=== PATIENT | female | born 1965 | race African-American/Black ===

== ENCOUNTER 2018-10-17 04:41 | Emergency (ER) | payer OTHER ==
[2018-10-17 04:57] VITALS: BP 110/78; PULSE 98; TEMP 98.8; BMI 44.2
[2018-10-17] MEDS ORDERED: IBUPROFEN 600 MG TABLET (FP) PO ONE ×2 (05:35→05:51)
--- NOTE | 2018-10-17 05:36 | PDOC ---
Attending Attestation - HPI HPI: 10/17/18 05:45 The patient is a 53 year old female with a PMH of DM on metformin who presents to the ER with bilateral feet burning for the past month. Patient has follow up with her slitting machine operator. Patient will follow up with her PCP on 10/20. The patient denies chest pain, shortness of breath, headache and dizziness. Denies fever, chills, nausea, vomit, diarrhea and constipation. Denies dysuria, frequency, urgency and hematuria. Allergies: NKA Past surgical history: None reported. Social history: No reported alcohol, drug or cigarette use. PCP: Dr. Daily - Physicial Exam PE: 10/17/18 05:46 Agrees with resident's exam. <Vivian Chavez - Last Filed: 10/17/18 05:45> - Resident Resident Name: Ralph Guzmán - ED Attending Attestation I have performed the following: I have examined & evaluated the patient, The case was reviewed & discussed with the resident, I agree w/resident's findings & plan - Medical Decision Making 10/17/18 22:19 53-year-old female with chronic for pain Patient given analgesics at her request She will follow-up with her regular doctor <Claribel Kern - Last Filed: 10/17/18 22:20>
--- NOTE | 2018-10-17 05:54 | PDOC ---
History of Present Illness - General Chief Complaint: Pain, Acute Stated Complaint: BI-LATERAL LEG PAIN Time Seen by Provider: 10/17/18 05:27 History Source: Patient Exam Limitations: No Limitations - History of Present Illness Initial Comments: 10/17/18 05:46 Patient is a 53F with history of DM and diabetic neuropathy here today complaining of pain in her legs. She describes the pain in her legs as consistent with her diabetic neuropathy that has been going on for months. Patient states that she was asking for a second opinion to manage her diabetic neuropathy. Patient has primary care and podiatry follow up. Denies chest pain, shortness of breath, fever, nausea, and vomiting. Denies leg swelling, abdominal pain, dysuria. Past History - Past Medical History Allergies/Adverse Reactions: Allergies Allergy/AdvReac Type Severity Reaction Status Date / Time No Known Drug Allergies Allergy Verified 10/17/18 04:57 Home Medications: Ambulatory Orders Albuterol Sulfate Inhaler - [Ventolin Hfa *Inhaler*] 1 - 2 inh IH Q4H PRN Ferrous Sulfate [Feosol] 325 mg PO BID 11/26/12 Sitagliptin Phosphate [Januvia] 100 mg PO DAILY 11/26/12 metFORMIN HCL [Glucophage] 500 mg PO BID 11/26/12 Ibuprofen [Motrin -] 800 mg PO TID 06/30/14 Ibuprofen 600 mg PO BID #20 tablet 10/17/18 Anemia: No Asthma: Yes Cancer: No Cardiac Disorders: No CVA: No COPD: No CHF: No Dementia: No Diabetes: Yes (TYPE 2) GI Disorders: No Disorders: No HTN: No Hypercholesterolemia: No Liver Disease: No Seizures: No Thyroid Disease: No - Suicide/Smoking/Psychosocial Hx Smoking History: Never smoked Have you smoked in the past 12 months: No Number of Cigarettes Smoked Daily: 10 Information on smoking cessation initiated: No 'Breaking Loose' booklet given: 11/26/12 Hx Alcohol Use: No Drug/Substance Use Hx: No Substance Use Type: None Hx Substance Use Treatment: No Review of Systems - Review of Systems Comments:: 10/17/18 05:54 GENERAL/CONSTITUTIONAL: No fever or chills. No weakness. HEAD, EYES, EARS, NOSE AND THROAT: No change in vision. No sore throat. CARDIOVASCULAR: No chest pain or shortness of breath RESPIRATORY: No cough, wheezing, or hemoptysis. GASTROINTESTINAL: No nausea, vomiting, diarrhea or constipation. GENITOURINARY: No dysuria, frequency, or change in urination. MUSCULOSKELETAL: +leg pain. No neck or back pain. SKIN: No rash NEUROLOGIC: No headache, vertigo, loss of consciousness, or change in strength/ sensation. HEMATOLOGIC/LYMPHATIC: No anemia, easy bleeding, or history of blood clots. ALLERGIC/IMMUNOLOGIC: No hives or skin allergy. *Physical Exam - Vital Signs Last Vital Signs Temp Pulse Resp BP Pulse Ox 98.8 F 98 H 19 110/78 97 10/17/18 04:41 10/17/18 04:41 10/17/18 04:41 10/17/18 04:41 10/17/18 04:41 - Physical Exam Comments: 10/17/18 05:55 GENERAL: Awake, alert, and fully oriented, in no acute distress HEAD: No signs of trauma, normocephalic, atraumatic EYES: PERRLA, EOMI, sclera anicteric, conjunctiva clear ENT: Auricles normal inspection, hearing grossly normal, nares patent, oropharynx clear without exudates. Moist mucosa NECK: Normal ROM, supple, no lymphadenopathy, JVD, or masses LUNGS: No distress, speaks full sentences, clear to auscultation bilaterally HEART: Regular rate and rhythm, normal S1 and S2, no murmurs, rubs or gallops, peripheral pulses normal and equal bilaterally. ABDOMEN: Soft, nontender, normoactive bowel sounds. No guarding, no rebound. No masses EXTREMITIES: Normal inspection, Normal range of motion, no edema. No clubbing or cyanosis. Neurovascularly intact with 2+ pulses bilaterally. NEUROLOGICAL: Cranial nerves II through XII grossly intact. Normal speech, normal gait, no focal sensorimotor deficits SKIN: Warm, Dry, normal turgor, no rashes or lesions noted. Moderate Sedation - Procedure Monitoring Vital Signs: Procedure Monitoring Vital Signs Temperature 98.8 F 10/17/18 04:41 Pulse Rate 98 H 10/17/18 04:41 Respiratory Rate 19 10/17/18 04:41 Blood Pressure 110/78 10/17/18 04:41 O2 Sat by Pulse Oximetry (%) 97 10/17/18 04:41 Medical Decision Making - Medical Decision Making 03/13/19 05:57 Patient is 53F with diabetic neuropathy here today with leg pain consistent with diabetic neuropathy. Vitals normal and stable. Patient requesting second opinion, instructed to follow up with pcp and her sandwich machine operator, continue current treatments. Will discharge home. Patient requested prescription for motrin, given. *DC/Admit/Observation/Transfer Diagnosis at time of Disposition: Diabetic neuropathy - Discharge Dispostion Disposition: HOME Condition at time of disposition: Good Decision to Admit order: No - Prescriptions Prescriptions: Ibuprofen 600 mg PO BID #20 tablet - Referrals Referrals: Lali Daily [Primary Care Provider] - - Patient Instructions Printed Discharge Instructions: DI for Diabetic Neuropathy Additional Instructions: Please follow up with your primary care doctor and sandwich machine operator regarding your diabetic neuropathy. Please return if you have any new, worsening or concerning symptoms, especially increasing pain, shortness of breath, and fever. - Post Discharge Activity
== END 2018-10-17 07:53 | disposition home or self-care (01) ==
LOC: JER 04:41
DX: E11.40 Type 2 diabetes mellitus with diabetic neuropathy, unspecified (principal); Z79.84 Long term (current) use of oral hypoglycemic drugs; Z87.891 Personal history of nicotine dependence
CPT/HCPCS: 99281-25

== ENCOUNTER 2018-10-21 04:18 | Emergency (ER) | payer OTHER ==
[2018-10-21] MEDS ORDERED: ACETAMINOPHEN 1000 MG/100 ML VIAL (NON FORMULARY) IVPB ONE (04:49)
--- NOTE | 2018-10-21 04:57 | PDOC ---
History of Present Illness - General Stated Complaint: FOOT PAIN Time Seen by Provider: 10/21/18 04:36 - History of Present Illness Initial Comments: 10/21/18 04:50 Patient is a 53 y/o female with a history of DM and HTN who presents for lower extremity pain. She has had this pain for years and knows it is a neuropathic pain related to her diabetes. She reports she has a primary care at [facility] but they don't help her. She takes Gabapentin for the neuopathic pain but reports it doesn't help. She states she is compliant with her medications. She reports the pain is constant and wakes her up from sleep. She denies nausea, vomiting, fever, chills, chest pain, or shortness of breath. 10/21/18 04:57 1 gm IV Tylenol for pain Past History - Past Medical History Allergies/Adverse Reactions: Allergies Allergy/AdvReac Type Severity Reaction Status Date / Time No Known Drug Allergies Allergy Verified 10/21/18 05:17 Home Medications: Ambulatory Orders Albuterol Sulfate Inhaler - [Ventolin Hfa *Inhaler*] 1 - 2 inh IH Q4H PRN Ferrous Sulfate [Feosol] 325 mg PO BID 11/26/12 Sitagliptin Phosphate [Januvia] 100 mg PO DAILY 11/26/12 metFORMIN HCL [Glucophage] 500 mg PO BID 11/26/12 Ibuprofen [Motrin -] 800 mg PO TID 06/30/14 Ibuprofen 600 mg PO BID #20 tablet 10/17/18 Anemia: No Asthma: Yes Cancer: No Cardiac Disorders: No CVA: No COPD: No CHF: No Dementia: No Diabetes: Yes (TYPE 2) GI Disorders: No Disorders: No HTN: No Hypercholesterolemia: No Liver Disease: No Seizures: No Thyroid Disease: No - Suicide/Smoking/Psychosocial Hx Smoking History: Never smoked Have you smoked in the past 12 months: No Number of Cigarettes Smoked Daily: 10 'Breaking Loose' booklet given: 11/26/12 Hx Alcohol Use: No Drug/Substance Use Hx: No Substance Use Type: None Hx Substance Use Treatment: No Review of Systems - Review of Systems Constitutional: No: Chills, Fever, Night Sweats HEENTM: No: Blurred Vision Respiratory: No: Cough, Shortness of Breath Cardiac (ROS): No: Chest Pain ABD/GI: No: Abdominal Distended, Diarrhea, Nausea Neurological: Yes: Tingling *Physical Exam - Physical Exam Comments: 10/21/18 04:55 GENERAL: A&O x3, figiting HEART: RRR, no murmurs, rubs, or gallops LUNGS: CTAL B/L ABD: soft, obese, non tender EXTREMITIES: diffuse nonpitting edema of lower extremity MSK: sensation intact, 5/5 strength lower extremity skin: no rashes or lesions noted *DC/Admit/Observation/Transfer Diagnosis at time of Disposition: Diabetic neuropathy Qualifiers: Diabetes mellitus type: type 2 Diabetes mellitus complication detail: diabetic autonomic neuropathy Qualified Code(s): E11.43 - Type 2 diabetes mellitus with diabetic autonomic (poly)neuropathy - Discharge Dispostion Disposition: HOME Condition at time of disposition: Good - Referrals - Patient Instructions Printed Discharge Instructions: DI for Diabetic Neuropathy Additional Instructions: You came to the Emergency Department for pain in your legs. This is due to the neuropathy that you have from Diabetes. It is very important to continue to control your sugars so the pain does not worsen. We gave you some medication to help with the pain. You should continue to follow up with your primary care physician for continued treatment for your pain. Please return to the hospital if you have nausea, vomiting, headache, shortness of breath or chest pain. - Post Discharge Activity
[2018-10-21] MEDS ORDERED: ACETAMINOPHEN INJECTION 100 ML IVPB ONE (05:01)
[2018-10-21] MEDS ORDERED: KETOROLAC TROMETHAMINE 30 MG/1 ML VIAL IM ONE (05:14)
[2018-10-21 05:18] VITALS: BMI 25.7
[2018-10-21] MEDS ORDERED: KETOROLAC TROMETHAMINE 30 MG/1 ML VIAL ONE (05:20)
--- NOTE | 2018-10-21 06:15 | PDOC ---
Attending Attestation - Resident Resident Name: Lillie Cruz - ED Attending Attestation I have performed the following: I have examined & evaluated the patient, The case was reviewed & discussed with the resident, I agree w/resident's findings & plan - HPI HPI: 10/21/18 06:15 Pt comes with leg pain and neuropathy that woke her from sleep. Pt states that her legs are more swollen than usual. - Physicial Exam PE: 10/21/18 06:16 Agree with resident exam - Medical Decision Making 10/21/18 06:16 Pt is feeling vastly improved in the ER and she has been reassured and she is willing to go home.
[2018-10-21 06:39] VITALS: BP 130/89; PULSE 104; TEMP 98.1
== END 2018-10-21 09:15 | disposition home or self-care (01) ==
LOC: JER 04:18
PROC: 3E0233Z Introduction of Anti-inflammatory into Muscle, Percutaneous Approach (ICD-10-PCS; principal; 2018-10-21)
DX: E11.43 Type 2 diabetes mellitus with diabetic autonomic (poly)neuropathy (principal); Z79.84 Long term (current) use of oral hypoglycemic drugs; Z87.09 Personal history of other diseases of the respiratory system
CPT/HCPCS: 96372; 99281-25

== ENCOUNTER → 2018-11-12 | Emergency (ER) | payer OTHER ==
[2018-11-12 12:57] VITALS: BP 136/90; PULSE 95; TEMP 97.6; BMI 41.1
--- NOTE | 2018-11-12 15:11 | PDOC ---
*Physical Exam - Vital Signs Last Vital Signs Temp Pulse Resp BP Pulse Ox 97.6 F 95 H 16 136/90 100 11/12/18 12:30 11/12/18 12:30 11/12/18 12:30 11/12/18 12:30 11/12/18 12:30 *DC/Admit/Observation/Transfer Diagnosis at time of Disposition: Patient left after triage - Discharge Dispostion Disposition: LEFT BEFORE AXEL ERAZO RM - Referrals Referrals: Lillie Lovett [Primary Care Provider] - - Patient Instructions - Post Discharge Activity
== END | disposition left against medical advice (07) ==
LOC: JER 12:29
DX: Z53.21 Procedure and treatment not carried out due to patient leaving prior to being seen by health care provider (principal)
CPT/HCPCS: 99281-25

== ENCOUNTER 2020-03-26 02:47 | Observation (INO) | payer OTHER ==
--- NOTE | 2020-03-26 02:58 | PDOC ---
Attending Attestation - Resident Resident Name: Julio Silverman - ED Attending Attestation I have performed the following: I have examined & evaluated the patient, The case was reviewed & discussed with the resident, I agree w/resident's findings & plan - HPI HPI: 03/26/20 03:59 see resident hpi - Physicial Exam PE: 03/26/20 03:59 see resident exam - Medical Decision Making 03/26/20 03:54-year-old female status post fall with pain to the left knee and leg with admitted cocaine and alcohol use this evening In addition to stated complaint patient states she is also had bilateral lower extremity swelling, left greater than right We will proceed with trauma/medical evaluation 03/26/20 06:[address] shows no acute abnormality Labs significant for hyperkalemia, possibly due to hemolysis Elevated blood sugar as well as elevated BNP Insulin, Lasix and calcium given We will admit to medical service for further evaluation Discharge - Discharge Information Problems reviewed: Yes Clinical Impression/Diagnosis: CHF (congestive heart failure) Qualifiers: Heart failure type: unspecified Heart failure chronicity: unspecified Qualified Code(s): I50.9 - Heart failure, unspecified Uncontrolled diabetes mellitus Qualifiers: Diabetes mellitus type: type 2 Glycemic state: with hyperglycemia Qualified Code(s): E11.65 - Type 2 diabetes mellitus with hyperglycemia Fall Qualifiers: Encounter type: initial encounter Qualified Code(s): W19.XXXA - Unspecified fall, initial encounter Condition: Fair - Follow up/Referral - Patient Discharge Instructions - Post Discharge Activity
[2020-03-26 03:00] VITALS: BMI 41.5
[2020-03-26 03:50] LABS: HEMOGLOBIN 14.9 GM/dL (10.7-15.3); MCH 31.4 pg (25.7-33.7); MEAN CELL VOLUME 95.2 fl (80-96); MEAN PLT VOLUME 9.6 fl (7.5-11.1); PLATELET COUNT 218 K/MM3 (134-434); RBC 4.73 M/mm3 (3.60-5.2); RDW 14.8 % (11.6-15.6); WHITE BLOOD COUNT 5.5 K/mm3 (4.0-10.0)
[2020-03-26 03:56] LABS: EPI CELLS 4 /uL (0-25.1); HYALINE CASTS 0 /uL (0-3.1); URINE APPEARANCE CLEAR; URINE BACTERIA 6033 /uL (0-1359); URINE BILIRUBIN NEGATIVE (NEGATIVE); URINE COLOR YELLOW; URINE GLUCOSE (UA) 3+ (NEGATIVE); URINE KETONE NEGATIVE (NEGATIVE); URINE LEUK ESTERASE NEGATIVE (NEGATIVE); URINE NITRITE NEGATIVE (NEGATIVE); URINE PROTEIN 2+ (NEGATIVE); URINE RBC 6 /uL (0-23.9); URINE UROBILINOGEN 0.2 mg/dL (0.2-1.0); URINE WBC 22 /uL (0-25.8)
[2020-03-26 03:59] LABS: OPIATES, URI NEGATIVE ng/ml (CUTOFF=300); URINE BARBITURATES NEGATIVE ng/ml (CUTOFF=200)
[2020-03-26 04:41] LABS: METHADONE, UR NEGATIVE ng/ml (CUTOFF=300); URINE AMPHETAMINES NEGATIVE ng/ml (CUTOFF=500); URINE BENZODIAZEPINES NEGATIVE ng/ml (CUTOFF=200)
[2020-03-26 04:45] LABS: COCAINE, UR POSITIVE ng/ml (CUTOFF=300)
[2020-03-26 04:46] LABS: PHENCYCLIDINE,URINE POSITIVE ng/ml (CUTOFF=25)
[2020-03-26 04:54] LABS: BLOOD UREA NITROGEN 21.4 mg/dL (7-18); CALCIUM 8.5 mg/dL (8.5-10.1); CREATININE 1.1 mg/dL (0.55-1.3)
[2020-03-26 04:56] LABS: BILIRUBIN,TOTAL 0.3 mg/dL (0.2-1); N-TERMINAL BNP 1200.1 pg/ml (5-125); TOT PROT 7.3 g/dl (6.4-8.2)
[2020-03-26 04:58] LABS: POTASSIUM 7.8 mmol/L (3.5-5.1)
[2020-03-26] MEDS ORDERED: INSULIN REGULAR HUMAN 100 UNITS/ML *VIAL IVPUSH ONE (05:02)
[2020-03-26 05:04] LABS: INR 0.83 (0.83-1.09); PROTHROMBIN TIME (PATIENT) 9.8 SEC (9.7-13.0)
[2020-03-26 05:06] LABS: ACTIVATED PTT 28.1 SECONDS (25.2-36.5)
--- NOTE | 2020-03-26 05:44 | PDOC ---
History of Present Illness - General Chief Complaint: Injury Stated Complaint: FALL Time Seen by Provider: 03/26/20 02:56 - History of Present Illness Initial Comments: 03/26/20 05:37 54 F with HTN, DM, COPD BIBA after a fall. Patient went to the toilet, had an urinary urgency, peed and fell on the floor. Denies head hitting, LOC. Denies N/V/D. Patient admitted to drinking beer, and did cocaine. Patient was screaming and yelling at the staff. Patient janae endorse left leg pain. Patient tried to call her PCP for the past 3 weeks, but couldn't. Left leg swelling has been going on for the past 3 weeks. HPI PMHX: as in HPI PSHX: none Meds: insulin. Allergies: no Tob: yes Etoh: yes to beer Rec drugs: yes to cocaine PCP: none ROS GENERAL/CONSTITUTIONAL: No fever or chills. No weakness. HEAD, EYES, EARS, NOSE AND THROAT: No change in vision. No ear pain or discharge. No sore throat. CARDIOVASCULAR: No chest pain or shortness of breath RESPIRATORY: No cough, wheezing, or hemoptysis. GASTROINTESTINAL: No nausea, vomiting, diarrhea or constipation. GENITOURINARY: No dysuria, frequency, or change in urination. MUSCULOSKELETAL: +left leg pain. No neck or back pain. SKIN: No rash NEUROLOGIC: No headache, vertigo, loss of consciousness, or change in strength/sensation. ENDOCRINE: No increased thirst. No abnormal weight change HEMATOLOGIC/LYMPHATIC: No anemia, easy bleeding, or history of blood clots. ALLERGIC/IMMUNOLOGIC: No hives or skin allergy. PE GENERAL:no acute distress, somnolent, drunk. screaming at staff. demanding every 5 mins. Morbidly obese. HEAD: No signs of trauma, normocephalic, atraumatic EYES: PERRLA, EOMI, sclera anicteric, conjunctiva clear ENT: Auricles normal inspection, hearing grossly normal, nares patent, oropharynx clear without exudates. Moist mucosa NECK: Normal ROM, supple, no lymphadenopathy, JVD, or masses LUNGS: No distress, speaks full sentences, clear to auscultation bilaterally HEART: Regular rate and rhythm, normal S1 and S2, no murmurs, rubs or gallops, peripheral pulses normal and equal bilaterally. ABDOMEN: Soft, protrubing, nondistended, normoactive bowel sounds. No guarding, no rebound. No masses EXTREMITIES :Left leg below the knee looks cellulitis, red/warm/tender. Right leg normal NEUROLOGICAL: Cranial nerves II through XII grossly intact. Normal speech, normal gait, no focal sensorimotor deficits SKIN: Warm, Dry, normal turgor, no rashes or lesions noted Past History - Medical History Allergies/Adverse Reactions: Allergies Allergy/AdvReac Type Severity Reaction Status Date / Time No Known Drug Allergies Allergy Verified 03/26/20 03:00 Home Medications: Ambulatory Orders Albuterol Sulfate Inhaler - [Ventolin Hfa *Inhaler*] 1 - 2 inh IH Q4H PRN 11/26/12 Ferrous Sulfate [Feosol] 325 mg PO BID 11/26/12 Sitagliptin Phosphate [Januvia] 100 mg PO DAILY 11/26/12 metFORMIN HCL [Glucophage] 500 mg PO BID 11/26/12 Ibuprofen [Motrin -] 800 mg PO TID 06/30/14 Ibuprofen 600 mg PO BID #20 tablet 10/17/18 Anemia: No Asthma: Yes Cancer: No Cardiac Disorders: No CVA: No COPD: No CHF: No Dementia: No Diabetes: Yes (TYPE 2) GI Disorders: No Disorders: No HTN: No Hypercholesterolemia: No Liver Disease: No Seizures: No Thyroid Disease: No - Reproductive History Is Patient Now?: No - Immunization History Immunization Up to Date: (Unknown) - Psycho-Social/Smoking History Smoking History: Never smoked Have you smoked in the past 12 months: No Number of Cigarettes Smoked Daily: 10 Information on smoking cessation initiated: No 'Breaking Loose' booklet given: 11/26/12 - Substance Abuse Hx (Audit-C & DAST Scrn) How often the patient has a drink containing alcohol: Never Score: In Men: 4 or > Positive; In Women: 3 or > Positive: 0 Screen Result (Pos requires Nsg. Audit-10AR): Negative In the last yr the pt used illegal drug/Rx for NonMed reason: No Score: Yes response is considered Positive: 0 Screen Result (Positive result requires Nsg. DAST-10): Negative *Physical Exam - Vital Signs Last Vital Signs Temp Pulse Resp BP Pulse Ox 97.7 F 106 H 20 165/78 96 03/26/20 02:50 03/26/20 02:50 03/26/20 02:50 03/26/20 02:50 03/26/20 02:50 ED Treatment Course - LABORATORY CBC & Chemistry Diagram: 03/26/20 03:20 03/26/20 05:28 - ADDITIONAL ORDERS Additional order review: Laboratory Results 03/26/20 03/26/20 03/26/20 04:20 03:20 03:20 PT with INR 9.80 INR 0.83 PTT (Actin FS) 28.1 Sodium Potassium Chloride Carbon Dioxide Anion Gap BUN Creatinine Est GFR (CKD-EPI)AfAm Est GFR (CKD-EPI)NonAf Random Glucose Calcium Total Bilirubin AST ALT Alkaline Phosphatase Creatine Kinase Creatine Kinase Index CK-MB (CK-2) Troponin I B-Natriuretic Peptide Total Protein Albumin Urine Color Yellow Urine Appearance Clear Urine pH 5.0 Ur Specific [place] 1.015 Urine Protein 2+ H Urine Glucose (UA) 3+ H Urine Ketones Negative Urine Blood Trace Urine Nitrite Negative Urine Bilirubin Negative Urine Urobilinogen 0.2 Ur Leukocyte Esterase Negative Urine WBC (Auto) 22 Urine RBC (Auto) 6 Urine Casts (Auto) 0 U Epithel Cells (Auto) 4 Urine Bacteria (Auto) 6033 Opiates Screen Negative Methadone Screen Negative Barbiturate Screen Negative Phencyclidine Screen Positive A* Ur Amphetamines Screen Negative MDMA (Ecstasy) Screen Negative Benzodiazepines Screen Negative Cocaine Screen Positive A* U Marijuana (THC) Screen Negative 03/26/20 03/26/20 03:20 03:19 PT with INR Cancelled INR Cancelled PTT (Actin FS) Cancelled Sodium 131 L Potassium 7.8 H* Chloride 102 Carbon Dioxide 22 Anion Gap 7 L BUN 21.4 H Creatinine 1.1 Est GFR (CKD-EPI)AfAm 65.92 Est GFR (CKD-EPI)NonAf 56.87 Random Glucose 401 H* Calcium 8.5 Total Bilirubin 0.3 AST 97 H ALT 99 H Alkaline Phosphatase 245 H Creatine Kinase 166 Creatine Kinase Index 1.0 CK-MB (CK-2) 1.7 Troponin I 0.04 B-Natriuretic Peptide 1200.1 H Total Protein 7.3 Albumin 3.0 L Urine Color Urine Appearance Urine pH Ur Specific [place] Urine Protein Urine Glucose (UA) Urine Ketones Urine Blood Urine Nitrite Urine Bilirubin Urine Urobilinogen Ur Leukocyte Esterase Urine WBC (Auto) Urine RBC (Auto) Urine Casts (Auto) U Epithel Cells (Auto) Urine Bacteria (Auto) Opiates Screen Methadone Screen Barbiturate Screen Phencyclidine Screen Ur Amphetamines Screen MDMA (Ecstasy) Screen Benzodiazepines Screen Cocaine Screen U Marijuana (THC) Screen 03/26/20 03:20 RBC 4.73 MCV 95.2 MCHC 33.0 RDW 14.8 D MPV 9.6 - RADIOLOGY Radiology Studies Ordered: Category Date Time Status HEAD CT WITHOUT CONTRAST [CT] Stat CT Scan 03/26/20 03:13 Ordered PORTCXR [CHEST X-RAY PORTABLE*] [RAD] Stat Radiology 03/26/20 03:14 Taken - Medications Given in the ED: ED Medications Discontinued Medications Generic Name Dose Route Start Last Admin Trade Name Toney PRN Reason Stop Dose Admin Insulin Human Regular 6 units 03/26/20 05:02 03/26/20 05:32 Novolin R Vial *For Ivpush Or Iv Drip Only* IVPUSH 03/26/20 05:03 6 units ONCE ONE Administration Medical Decision Making - Medical Decision Making 03/26/20 05:[address], Chest Xray CBC, CMP, trop, UA/UC, UTox EKG : vent rate 105, sinus tachycardia , low voltage QRS, no ST elevation. CBC is normal, CMP (hemolyzed), EKG is normal, no ST elevated. . troponin is negative. Blood sugar 400, BNP 1200, elevated liver enzymes. Utox : +cocaine, +PCP UA: elevated WBC---> ceftriaxone. Plan: admit for antibiotics+ duplex, CHF, uncontrolled DM. 03/26/20 05:51 03/26/20 06:19 Repeated BMP: K is 6. Give insulin + calcium gluconate. No change in EKG> Will repeat BMP. 03/26/20 06:33 03/26/20 06:[address] scan result: Discharge - Discharge Information Problems reviewed: Yes Clinical Impression/Diagnosis: CHF (congestive heart failure) Qualifiers: Heart failure type: unspecified Heart failure chronicity: unspecified Qualified Code(s): I50.9 - Heart failure, unspecified Uncontrolled diabetes mellitus Qualifiers: Diabetes mellitus type: type 2 Glycemic state: with hyperglycemia Qualified Code(s): E11.65 - Type 2 diabetes mellitus with hyperglycemia Fall Qualifiers: Encounter type: initial encounter Qualified Code(s): W19.XXXA - Unspecified fall, initial encounter Condition: Fair - Admission Yes - Follow up/Referral - Patient Discharge Instructions - Post Discharge Activity
[2020-03-26 06:01] LABS: ALBUMIN 2.9 g/dl (3.4-5.0); BILIRUBIN,TOTAL 0.2 mg/dL (0.2-1); BLOOD UREA NITROGEN 18.6 mg/dL (7-18); CALCIUM 8.6 mg/dL (8.5-10.1); CREATININE 0.9 mg/dL (0.55-1.3); TOT PROT 6.8 g/dl (6.4-8.2)
[2020-03-26] MEDS ORDERED: CALCIUM GLUCONATE 10% - 1,000 MG/10 ML VIAL IVPB ONE (06:18)
[2020-03-26] MEDS ORDERED: CEFTRIAXONE 1,000 MG in DEXTROSE 5%-WATER - 50 ML IVPB ONE (06:53)
[2020-03-26] MEDS ORDERED: CALCIUM CHLORIDE 1 GM/10 ML *DISP.SYRIN ONE (06:53)
[2020-03-26] MEDS ORDERED: FUROSEMIDE 40 MG/4 ML INJECTABLE VIAL IVPUSH ONE (07:00)
--- NOTE | 2020-03-26 07:16 | PDOC ---
*Physical Exam - Vital Signs Last Vital Signs Temp Pulse Resp BP Pulse Ox 97.7 F 106 H 20 165/78 97 03/26/20 02:50 03/26/20 02:50 03/26/20 02:50 03/26/20 02:50 03/26/20 06:24 ED Treatment Course - LABORATORY CBC & Chemistry Diagram: 03/26/20 03:20 03/26/20 05:28 - ADDITIONAL ORDERS Additional order review: Laboratory Results 03/26/20 03/26/20 03/26/20 05:28 04:20 03:20 PT with INR 9.80 INR 0.83 PTT (Actin FS) 28.1 Sodium 135 L Potassium 6.0 H Chloride 102 Carbon Dioxide 25 Anion Gap 8 BUN 18.6 H Creatinine 0.9 Est GFR (CKD-EPI)AfAm 84.01 Est GFR (CKD-EPI)NonAf 72.49 Random Glucose 385 H Calcium 8.6 Total Bilirubin 0.2 AST 65 H ALT 88 H Alkaline Phosphatase 233 H Creatine Kinase Creatine Kinase Index CK-MB (CK-2) Troponin I B-Natriuretic Peptide Total Protein 6.8 Albumin 2.9 L Urine Color Urine Appearance Urine pH Ur Specific [place] Urine Protein Urine Glucose (UA) Urine Ketones Urine Blood Urine Nitrite Urine Bilirubin Urine Urobilinogen Ur Leukocyte Esterase Urine WBC (Auto) Urine RBC (Auto) Urine Casts (Auto) U Epithel Cells (Auto) Urine Bacteria (Auto) Opiates Screen Negative Methadone Screen Negative Barbiturate Screen Negative Phencyclidine Screen Positive A* Ur Amphetamines Screen Negative MDMA (Ecstasy) Screen Negative Benzodiazepines Screen Negative Cocaine Screen Positive A* U Marijuana (THC) Screen Negative 03/26/20 03/26/20 03/26/20 03:20 03:20 03:19 PT with INR Cancelled INR Cancelled PTT (Actin FS) Cancelled Sodium 131 L Potassium 7.8 H* Chloride 102 Carbon Dioxide 22 Anion Gap 7 L BUN 21.4 H Creatinine 1.1 Est GFR (CKD-EPI)AfAm 65.92 Est GFR (CKD-EPI)NonAf 56.87 Random Glucose 401 H* Calcium 8.5 Total Bilirubin 0.3 AST 97 H ALT 99 H Alkaline Phosphatase 245 H Creatine Kinase 166 Creatine Kinase Index 1.0 CK-MB (CK-2) 1.7 Troponin I 0.04 B-Natriuretic Peptide 1200.1 H Total Protein 7.3 Albumin 3.0 L Urine Color Yellow Urine Appearance Clear Urine pH 5.0 Ur Specific [place] 1.015 Urine Protein 2+ H Urine Glucose (UA) 3+ H Urine Ketones Negative Urine Blood Trace Urine Nitrite Negative Urine Bilirubin Negative Urine Urobilinogen 0.2 Ur Leukocyte Esterase Negative Urine WBC (Auto) 22 Urine RBC (Auto) 6 Urine Casts (Auto) 0 U Epithel Cells (Auto) 4 Urine Bacteria (Auto) 6033 Opiates Screen Methadone Screen Barbiturate Screen Phencyclidine Screen Ur Amphetamines Screen MDMA (Ecstasy) Screen Benzodiazepines Screen Cocaine Screen U Marijuana (THC) Screen 03/26/20 03:20 RBC 4.73 MCV 95.2 MCHC 33.0 RDW 14.8 D MPV 9.6 - Medications Given in the ED: ED Medications Discontinued Medications Generic Name Dose Route Start Last Admin Trade Name Freq PRN Reason Stop Dose Admin Calcium Gluconate 1,000 mg 03/26/20 06:18 03/26/20 07:00 Calcium Gluconate 10% - IVPB 03/26/20 06:19 1,000 mg ONCE ONE Administration Insulin Human Regular 6 units 03/26/20 05:02 03/26/20 05:32 Novolin R Vial *For Ivpush Or Iv Drip Only* IVPUSH 03/26/20 05:03 6 units ONCE ONE Administration Medical Decision Making - Medical Decision Making 03/26/20 07:16 received sign out from night team 54F slip and fall s/p PCP and cocaine use Discharge - Discharge Information Clinical Impression/Diagnosis: CHF (congestive heart failure) Qualifiers: Heart failure type: unspecified Heart failure chronicity: unspecified Qualified Code(s): I50.9 - Heart failure, unspecified Uncontrolled diabetes mellitus Qualifiers: Diabetes mellitus type: type 2 Glycemic state: with hyperglycemia Qualified Code(s): E11.65 - Type 2 diabetes mellitus with hyperglycemia Fall Qualifiers: Encounter type: initial encounter Qualified Code(s): W19.XXXA - Unspecified fall, initial encounter Condition: Fair - Follow up/Referral - Patient Discharge Instructions - Post Discharge Activity
[2020-03-26] MEDS ORDERED: FUROSEMIDE 40 MG/4 ML INJECTABLE VIAL ONE ×2 (07:36→11:55)
[2020-03-26] MEDS ORDERED: CEFTRIAXONE 1 GM/50 ML BAG ONE (07:36)
[2020-03-26] MEDS ORDERED: ACETAMINOPHEN 1000 MG/100 ML VIAL (NON FORMULARY) IVPB ONE (08:13)
--- NOTE | 2020-03-26 08:34 | PDOC ---
*Physical Exam - Vital Signs Last Vital Signs Temp Pulse Resp BP Pulse Ox 97.7 F 106 H 20 165/78 97 03/26/20 02:50 03/26/20 02:50 03/26/20 02:50 03/26/20 02:50 03/26/20 06:24 ED Treatment Course - LABORATORY CBC & Chemistry Diagram: 03/26/20 03:20 03/26/20 08:10 - ADDITIONAL ORDERS Additional order review: Laboratory Results 03/26/20 03/26/20 03/26/20 05:28 04:20 03:20 PT with INR 9.80 INR 0.83 PTT (Actin FS) 28.1 Sodium 135 L Potassium 6.0 H Chloride 102 Carbon Dioxide 25 Anion Gap 8 BUN 18.6 H Creatinine 0.9 Est GFR (CKD-EPI)AfAm 84.01 Est GFR (CKD-EPI)NonAf 72.49 Random Glucose 385 H Calcium 8.6 Total Bilirubin 0.2 AST 65 H ALT 88 H Alkaline Phosphatase 233 H Creatine Kinase Creatine Kinase Index CK-MB (CK-2) Troponin I B-Natriuretic Peptide Total Protein 6.8 Albumin 2.9 L Urine Color Urine Appearance Urine pH Ur Specific [place] Urine Protein Urine Glucose (UA) Urine Ketones Urine Blood Urine Nitrite Urine Bilirubin Urine Urobilinogen Ur Leukocyte Esterase Urine WBC (Auto) Urine RBC (Auto) Urine Casts (Auto) U Epithel Cells (Auto) Urine Bacteria (Auto) Opiates Screen Negative Methadone Screen Negative Barbiturate Screen Negative Phencyclidine Screen Positive A* Ur Amphetamines Screen Negative MDMA (Ecstasy) Screen Negative Benzodiazepines Screen Negative Cocaine Screen Positive A* U Marijuana (THC) Screen Negative 03/26/20 03/26/20 03/26/20 03:20 03:20 03:19 PT with INR Cancelled INR Cancelled PTT (Actin FS) Cancelled Sodium 131 L Potassium 7.8 H* Chloride 102 Carbon Dioxide 22 Anion Gap 7 L BUN 21.4 H Creatinine 1.1 Est GFR (CKD-EPI)AfAm 65.92 Est GFR (CKD-EPI)NonAf 56.87 Random Glucose 401 H* Calcium 8.5 Total Bilirubin 0.3 AST 97 H ALT 99 H Alkaline Phosphatase 245 H Creatine Kinase 166 Creatine Kinase Index 1.0 CK-MB (CK-2) 1.7 Troponin I 0.04 B-Natriuretic Peptide 1200.1 H Total Protein 7.3 Albumin 3.0 L Urine Color Yellow Urine Appearance Clear Urine pH 5.0 Ur Specific [place] 1.015 Urine Protein 2+ H Urine Glucose (UA) 3+ H Urine Ketones Negative Urine Blood Trace Urine Nitrite Negative Urine Bilirubin Negative Urine Urobilinogen 0.2 Ur Leukocyte Esterase Negative Urine WBC (Auto) 22 Urine RBC (Auto) 6 Urine Casts (Auto) 0 U Epithel Cells (Auto) 4 Urine Bacteria (Auto) 6033 Opiates Screen Methadone Screen Barbiturate Screen Phencyclidine Screen Ur Amphetamines Screen MDMA (Ecstasy) Screen Benzodiazepines Screen Cocaine Screen U Marijuana (THC) Screen 03/26/20 03:20 RBC 4.73 MCV 95.2 MCHC 33.0 RDW 14.8 D MPV 9.6 - Medications Given in the ED: ED Medications Discontinued Medications Generic Name Dose Route Start Last Admin Trade Name Freq PRN Reason Stop Dose Admin Calcium Gluconate 1,000 mg 03/26/20 06:18 03/26/20 07:00 Calcium Gluconate 10% - IVPB 03/26/20 06:19 1,000 mg ONCE ONE Administration Furosemide 20 mg 03/26/20 07:00 03/26/20 07:40 Lasix Injection - IVPUSH 03/26/20 07:01 20 mg ONCE ONE Administration Ceftriaxone Sodium 1,000 mg/ 50 mls @ 100 mls/hr 03/26/20 06:53 03/26/20 07:45 Dextrose IVPB 03/26/20 07:22 100 mls/hr ONCE ONE Administration Insulin Human Regular 6 units 03/26/20 05:02 03/26/20 05:32 Novolin R Vial *For Ivpush Or Iv Drip Only* IVPUSH 03/26/20 05:03 6 units ONCE ONE Administration Medical Decision Making - Medical Decision Making 03/26/20 08:32 received as sign out from night team 54F slip and fall s/p cocaine and PCP to be admitted for hyperkalemia and hyperglycemia f/u DVT study 03/26/20 08:42 patient was c/o leg pain which notably was relieved when I examined her legs for edema will f/u DVT study and provide tylenol 03/26/20 10:16 no DVT on US endorsed to ANDIE Sánchez for tele-obs Discharge - Discharge Information Problems reviewed: Yes Clinical Impression/Diagnosis: CHF (congestive heart failure) Qualifiers: Heart failure type: unspecified Heart failure chronicity: unspecified Qualified Code(s): I50.9 - Heart failure, unspecified Uncontrolled diabetes mellitus Qualifiers: Diabetes mellitus type: type 2 Glycemic state: with hyperglycemia Qualified Code(s): E11.65 - Type 2 diabetes mellitus with hyperglycemia Fall Qualifiers: Encounter type: initial encounter Qualified Code(s): W19.XXXA - Unspecified fall, initial encounter Condition: Fair - Admission Yes - Follow up/Referral - Patient Discharge Instructions - Post Discharge Activity
[2020-03-26] MEDS ORDERED: ACETAMINOPHEN INJECTION 100 ML IVPB ONE (08:48)
[2020-03-26 09:08] LABS: BLOOD UREA NITROGEN 17.4 mg/dL (7-18); CALCIUM 9.1 mg/dL (8.5-10.1); CREATININE 0.8 mg/dL (0.55-1.3); POTASSIUM 4.4 mmol/L (3.5-5.1)
[2020-03-26 09:56] LABS: ANISOCYTOSIS 0; MACROCYTOSIS 0; PLATELET ESTIMATE NORMAL
[2020-03-26] MEDS ORDERED: INSULIN (LEVEMIR) 100 UNITS/ML UNITS SQ ONE ×2 (11:15→11:56)
--- NOTE | 2020-03-26 11:18 | CON.CARD ---
Consult Consult Specialty:: Cardiology Referred by:: Soni Reason for Consultation:: chf - History of Present Illness Chief Complaint: fall History of Present Illness: 54 F with HTN, DM, COPD drug use who was admitted 03/26/20 after a fall with sob and left leg pain. Noted with CHF on cxr and elevated bnp. TnI negative. ECG without changes. tox screen pos for cocaine and PCP. Duplex no DVT. - History Source History Provided By: Patient, Medical Record Limitations to Obtaining History: No Limitations - Past Medical History ...LMP: 03/11/15 ...: No - Alcohol/Substance Use Hx Alcohol Use: No - Smoking History Smoking history: Never smoked Have you smoked in the past 12 months: No Aproximately how many cigarettes per day: 10 Home Medications - Allergies Allergies/Adverse Reactions: Allergies Allergy/AdvReac Type Severity Reaction Status Date / Time No Known Drug Allergies Allergy Verified 03/26/20 03:00 - Home Medications Home Medications: Ambulatory Orders Albuterol Sulfate Inhaler - [Ventolin Hfa *Inhaler*] 1 - 2 inh IH Q4H PRN 11/06 09/19 Ferrous Sulfate [Feosol] 325 mg PO BID 11/26/12 Sitagliptin Phosphate [Januvia] 100 mg PO DAILY 11/26/12 metFORMIN HCL [Glucophage] 500 mg PO BID 11/26/12 Ibuprofen [Motrin -] 800 mg PO TID 06/30/14 Ibuprofen 600 mg PO BID #20 tablet 10/17/18 Vital Signs: Vital Signs Temperature 97.7 F 03/26/20 02:50 Pulse Rate 106 H 03/26/20 08:00 Respiratory Rate 15 03/26/20 08:00 Blood Pressure 132/57 L 03/26/20 08:00 O2 Sat by Pulse Oximetry (%) 95 03/26/20 08:00 Constitutional: Yes: No Distress, Obese Eyes: Yes: EOM Intact HENT: Yes: Normocephalic Neck: Yes: Trachea Midline Respiratory: Yes: Rales (bilat bases) Gastrointestinal: Yes: Normal Bowel Sounds, Soft Cardiovascular: Yes: Regular Rate and Rhythm JVD: Yes Carotid Bruit: No PMI: Non-Displaced Heart Sounds: Yes: S1, S2 Musculoskeletal: Yes: WNL Extremities: Yes: WNL Edema: Yes Edema: LLE: 1+, RLE: 1+ Peripheral Pulses WNL: Yes - Other Data Labs, Other Data: CBC, BMP 03/26/20 03:20 03/26/20 08:10 INR, PTT INR 0.83 (0.83-1.09) 03/26/20 04:20 Troponin, BNP 03/26/20 03:19 Troponin I 0.04 B-Natriuretic Peptide 1200.1 H Troponin, BNP 03/26/20 03:19 Troponin I 0.04 B-Natriuretic Peptide 1200.1 H Imaging - Results Chest X-ray: Report Reviewed EKG: Report Reviewed (nsr lvh old asmi) Assessment/Plan 54 F with HTN, DM, COPD drug use who was admitted 03/26/20 after a fall with sob and left leg pain. Noted with CHF on cxr and elevated bnp. TnI negative. ECG without acute changes. tox screen pos for cocaine and PCP. Duplex no DVT. IMP: -acute CHF, likely systolic -not a candidate for ischemia workup. no pure beta edna due to cocaine use, can consider coreg or labetalol. -echo -IV lasix for diuresis -will follow with you.
[2020-03-26] MEDS ORDERED: LISINOPRIL 5 MG TABLET (FP) ONE (11:55)
[2020-03-26] MEDS: FUROSEMIDE 40 MG/4 ML INJECTABLE VIAL IVPUSH SCH (12:05)
[2020-03-26] MEDS: INSULIN SLIDING SCALE (NOVOLOG) 1 VIAL SQ SCH ×3 (12:15→21:36)
[2020-03-26] MEDS: LISINOPRIL 10 MG TABLET (FP) PO SCH (12:15)
--- NOTE | 2020-03-26 14:58 | EKG ---
Test Reason : Blood Pressure : / mmHG Vent. Rate : 108 BPM Atrial Rate : 108 BPM P-R Int : 154 ms QRS Dur : 078 ms QT Int : 360 ms P-R-T Axes : 063 -17 066 degrees QTc Int : 482 ms SINUS TACHYCARDIA POSSIBLE LEFT ATRIAL ENLARGEMENT LOW VOLTAGE QRS BORDERLINE ECG WHEN COMPARED WITH ECG OF 26-MAR-2020 03:22, NO SIGNIFICANT CHANGE WAS FOUND Confirmed by POLLY RAGLAND MD ([id number]) on 03/26/2020 2:58:09 PM Referred By: Confirmed By:POLLY RAGLAND MD
--- NOTE | 2020-03-26 14:59 | EKG ---
Test Reason : Blood Pressure : / mmHG Vent. Rate : 105 BPM Atrial Rate : 105 BPM P-R Int : 146 ms QRS Dur : 074 ms QT Int : 362 ms P-R-T Axes : 070 -04 048 degrees QTc Int : 478 ms SINUS TACHYCARDIA LOW VOLTAGE QRS BORDERLINE ECG WHEN COMPARED WITH ECG OF 21-NOV-2012 09:22, NO SIGNIFICANT CHANGE WAS FOUND Confirmed by POLLY RAGLAND MD ([id number]) on 03/26/2020 2:58:51 PM Referred By: Confirmed By:POLLY RAGLAND MD
[2020-03-26] MEDS: ACETAMINOPHEN 325 MG TABLET (FP) PO PRN ×2 (15:44→20:56)
--- NOTE | 2020-03-26 16:43 | ECHO ---
Name: GEOVANNA JOHNSON Exam:Adult Echocardiogram Study Date: 03/26/2020 01:48 PM Age: 54 yrs Reason For Study: Chest pain, r/o WALL MOTION ABNORMALITIES Height: 61 in Weight: 220 lb BSA: 2.0 m2 MMode/2D Measurements & Calculations RVDd: 3.8 cm Ao root diam: 2.6 cm IVSd: 0.77 cm LA dimension: 4.1 cm LVIDd: 5.3 cm ACS: 1.7 cm LVIDs: 3.8 cm LVPWd: 0.97 cm EDV(Glenich): 135.6 ml EPSS: 1.3 cm ESV(Mohit): 60.5 ml LVOT diam: 2.0 cm LVLd ap4: 8.0 cm EDV(MOD-sp4): 108.0 ml LVLs ap4: 6.4 cm ESV(MOD-sp4): 59.0 ml SV(MOD-sp4): 49.0 ml LAV (MOD-bp): 68.0 ml TAPSE: 2.3 cm RV S Roger: 13.5 cm/sec Doppler Measurements & Calculations MV E max roger: 93.3 cm/sec Ao V2 max: 116.7 cm/sec MV A max roger: 95.8 cm/sec Ao max P.5 mmHg MV E/A: 0.97 Ao V2 mean: 86.9 cm/sec MV dec time: 0.11 sec Ao mean P.4 mmHg Ao V2 VTI: 21.7 cm CHUCK(I,D): 2.1 cm2 CHUCK(V,D): 2.1 cm2 LV V1 max P.6 mmHg SV(LVOT): 44.6 ml LV V1 mean P.3 mmHg LV V1 max: 80.0 cm/sec LV V1 mean: 51.8 cm/sec LV V1 VTI: 14.4 cm TR max roger: 243.6 cm/sec PA V2 max: 89.6 cm/sec TR max P.9 mmHg PA max P.2 mmHg PA acc slope: 677.5 cm/sec2 PA acc time: 0.08 sec Med Peak E' Roger: 10.7 cm/sec PA pr(Accel): 41.0 mmHg Med E/e': 8.7 Lat Peak E' Roger: 8.5 cm/sec Lat E/e': 11.0 Tech Comments TDS due to morbid obesity. Procedure A complete two-dimensional transthoracic echocardiogram was performed (2D, M-mode, Doppler and color flow Doppler). The study was technically difficult with many images being suboptimal in quality. Left Ventricle The left ventricular size, thickness and function are normal. Ejection Fraction = 55-60%. No regional wall motion abnormalities noted. Right Ventricle The right ventricle is normal in size and function. Atria Normal left and right atrial size and function. Mitral Valve There is no mitral regurgitation noted. Tricuspid Valve There is trace tricuspid regurgitation. There was insufficient TR detected to calculate RV systolic p ressure. Aortic Valve No hemodynamically significant valvular aortic stenosis. No aortic regurgitation is present. Pulmonic Valve There is no pulmonic valvular regurgitation. Great Vessels The aortic root is normal size. Pericardium/Pleura There is no pericardial effusion. Interpretation Summary The study was technically difficult with many images being suboptimal in quality. The left ventricular size, thickness and function are normal The right ventricle is normal in size and function. There is trace tricuspid regurgitation. MD Kamar Barnhart 03/26/2020 04:42 PM
[2020-03-26] MEDS ORDERED: traMADol HCL 50 MG TABLET PO ONE (17:21)
--- NOTE | 2020-03-26 19:32 | HP ---
Admitting History and Physical - Primary Care Physician PCP: Eunice Medley (Antwon Shafer) - Admission Chief Complaint: Fall. CHF History of Present Illness: 54 F with HTN, DM, COPD BIBA after a fall. Patient went to the toilet, had an urinary urgency, peed and fell on the floor. Denies head hitting, LOC. Denies N/V/D. Patient admitted to drinking beer, and did cocaine. Patient was screaming and yelling at the staff. Patient janae endorse left leg pain. Patient tried to call her PCP for the past 3 weeks, but couldn't. Left leg swelling has been going on for the past 3 weeks. History Source: Patient, Medical Record Limitations to Obtaining History: No Limitations - Past Medical History ...LMP: 03/11/15 ...: No - Smoking History Smoking history: Current every day smoker Have you smoked in the past 12 months: Yes Aproximately how many cigarettes per day: 10 - Alcohol/Substance Use Hx Alcohol Use: No Home Medications - Allergies Allergies/Adverse Reactions: Allergies Allergy/AdvReac Type Severity Reaction Status Date / Time No Known Drug Allergies Allergy Verified 03/26/20 03:00 - Home Medications Home Medications: Ambulatory Orders Albuterol Sulfate Inhaler - [Ventolin Hfa *Inhaler*] 1 - 2 inh IH Q4H PRN 11/26/12 Ferrous Sulfate [Feosol] 325 mg PO BID 11/26/12 Sitagliptin Phosphate [Januvia] 100 mg PO DAILY 11/26/12 metFORMIN HCL [Glucophage] 500 mg PO BID 11/26/12 Ibuprofen [Motrin -] 800 mg PO TID 06/30/14 Ibuprofen 600 mg PO BID #20 tablet 10/17/18 Review of Systems - Review of Systems Constitutional: reports: No Symptoms Eyes: reports: No Symptoms HENT: reports: No Symptoms Neck: reports: No Symptoms Cardiovascular: reports: Shortness of Breath Respiratory: reports: No Symptoms Gastrointestinal: reports: No Symptoms Genitourinary: reports: No Symptoms Breasts: reports: No Symptoms Reported Musculoskeletal: reports: Joint Pain (left knee pain), Other (fall) Integumentary: reports: No Symptoms Neurological: reports: No Symptoms Endocrine: reports: No Symptoms Hematology/Lymphatic: reports: No Symptoms Psychiatric: reports: No Symptoms Physical Examination Vital Signs: Vital Signs Temperature 97.7 F 03/26/20 18:00 Pulse Rate 103 H 03/26/20 18:00 Respiratory Rate 20 03/26/20 18:00 Blood Pressure 135/76 03/26/20 18:00 O2 Sat by Pulse Oximetry (%) 95 03/26/20 18:00 Constitutional: Yes: Well Nourished, No Distress, Calm, Obese Cardiovascular: Yes: Regular Rate and Rhythm Respiratory: Yes: Regular, CTA Bilaterally, Stridor Gastrointestinal: Yes: Normal Bowel Sounds, Soft, Abdomen, Obese Renal/: Yes: WNL Musculoskeletal: Yes: Muscle Weakness Extremities: Yes: WNL Edema: No Peripheral Pulses WNL: Yes Neurological: Yes: Alert, Oriented Psychiatric: Yes: Alert, Oriented Labs: CBC, BMP 03/26/20 03:20 03/26/20 08:10 Imaging - Results X-ray: Report Reviewed (CXR- Congestive changes noted) Cat Scan: Report Reviewed (Head CT unremarkale) Ultrasound: Report Reviewed (BLLE Venours dopple negative for DVT) Problem List - Problems (1) Morbid obesity Assessment/Plan: -Low calorie diet Problems reviewed: Yes Code(s): E66.01 - MORBID (SEVERE) OBESITY DUE TO EXCESS CALORIES (2) CHF (congestive heart failure) Assessment/Plan: -Echo-03/26/20- LVEF 55-60%,trace tricuspid regurg-suboptimal study -CXR some congestive changes -Cardiology consult -Continue Lisinopril -Add Carvedilol 3.25 mg po BID -Furosemide 40 mg IVP daily -I&O's Problems reviewed: Yes Code(s): I50.9 - HEART FAILURE, UNSPECIFIED Qualifiers: Heart failure type: unspecified Heart failure chronicity: unspecified Qualified Code(s): I50.9 - Heart failure, unspecified (3) Fall Assessment/Plan: -Heat CT negative -Physical therapy Problems reviewed: Yes Code(s): W19.XXXA - UNSPECIFIED FALL, INITIAL ENCOUNTER Qualifiers: Encounter type: initial encounter Qualified Code(s): W19.XXXA - Unspecified fall, initial encounter (4) Uncontrolled diabetes mellitus Assessment/Plan: -Check A1c -BGM AC HS -ISS -Levemir 20 QAM -Diabetic low sodium diet -Endocrine consult Problems reviewed: Yes Code(s): E11.65 - TYPE 2 DIABETES MELLITUS WITH HYPERGLYCEMIA Qualifiers: Diabetes mellitus type: type 2 Glycemic state: with hyperglycemia Qualified Code(s): E11.65 - Type 2 diabetes mellitus with hyperglycemia (5) Drug abuse Assessment/Plan: -Detox consult Problems reviewed: Yes Code(s): F19.10 - OTHER PSYCHOACTIVE SUBSTANCE ABUSE, UNCOMPLICATED (6) Abnormal liver enzymes Assessment/Plan: -U/S liver -Trending down -monitor trend -2/2 to congestive hepatopathy Problems reviewed: Yes Code(s): R74.8 - ABNORMAL LEVELS OF OTHER SERUM ENZYMES (7) Lower extremity edema Assessment/Plan: -U/S venous doppler negative for DVT Problems reviewed: Yes Code(s): R60.0 - LOCALIZED EDEMA Assessment/Plan See problem list
[2020-03-26] MEDS: HEPARIN NA (PORCINE) 5,000 UNITS/ML 1ML VIAL SQ SCH (21:22)
[2020-03-26] MEDS: CARVEDILOL 3.125 MG TABLET (FP) PO SCH (21:24)
[2020-03-27] MEDS: ACETAMINOPHEN 325 MG TABLET (FP) PO PRN ×2 (01:53→06:08)
[2020-03-27 05:51] VITALS: TEMP 98.2
[2020-03-27] MEDS: INSULIN SLIDING SCALE (NOVOLOG) 1 VIAL SQ SCH ×2 (06:04→11:48)
[2020-03-27] MEDS ORDERED: INSULIN (LEVEMIR) 100 UNITS/ML UNITS SQ SCH (07:00)
[2020-03-27 07:41] LABS: ALBUMIN 2.5 g/dl (3.4-5.0); BILIRUBIN,TOTAL 0.4 mg/dL (0.2-1); CALCIUM 8.3 mg/dL (8.5-10.1); POTASSIUM 4.6 mmol/L (3.5-5.1); TOT PROT 5.7 g/dl (6.4-8.2)
[2020-03-27 07:54] LABS: BLOOD UREA NITROGEN 32.2 mg/dL (7-18)
[2020-03-27 08:11] VITALS: BP 127/80; PULSE 91
--- NOTE | 2020-03-27 08:54 | PN ---
Progress Note, Physician Chief Complaint: Fall Drug abuse CHF History of Present Illness: NAD denies any pain or SOB Seen by Cardiology- cleared by cardiology to be discharged Has been to rehab multiple times for drug abuse, had a relapse. Sees psychiatry at [facility]. - Current Medication List Current Medications: Active Medications Acetaminophen (Tylenol -) 650 mg PO Q4H PRN PRN Reason: PAIN Last Admin: 03/27/20 06:08 Dose: 650 mg Documented by: Carvedilol (Coreg -) 3.125 mg PO BID [facility] Last Admin: 03/26/20 21:24 Dose: 3.125 mg Documented by: Furosemide (Lasix Injection -) 40 mg IVPUSH DAILY [facility] Last Admin: 03/26/20 12:05 Dose: 40 mg Documented by: Heparin Sodium (Porcine) (Heparin -) 5,000 unit SQ BID [facility] Last Admin: 03/26/20 21:22 Dose: 5,000 unit Documented by: Insulin Aspart (Novolog Vial Sliding Scale -) 1 vial SQ ACHS [facility]; Protocol Last Admin: 03/27/20 06:04 Dose: 2 units Documented by: Insulin Detemir (Levemir Vial) 20 units SQ AM [facility] Last Admin: 03/27/20 06:02 Dose: 20 units Documented by: Lisinopril (Prinivil) 10 mg PO DAILY [facility] Last Admin: 03/26/20 12:15 Dose: 10 mg Documented by: - Objective Vital Signs: Vital Signs Temperature 98.2 F 03/27/20 08:10 Pulse Rate 91 H 03/27/20 08:10 Respiratory Rate 20 03/27/20 08:12 Blood Pressure 127/80 03/27/20 08:10 O2 Sat by Pulse Oximetry (%) 95 03/27/20 08:12 Constitutional: Yes: Well Nourished, No Distress, Calm, Obese Cardiovascular: Yes: Regular Rate and Rhythm Respiratory: Yes: Regular, CTA Bilaterally Gastrointestinal: Yes: Normal Bowel Sounds, Soft, Abdomen, Obese Genitourinary: Yes: WNL Musculoskeletal: Yes: Muscle Weakness Extremities: Yes: WNL Edema: No Peripheral Pulses WNL: Yes Neurological: Yes: Alert, Oriented Psychiatric: Yes: Alert, Oriented Labs: CBC, BMP 03/26/20 03:20 03/27/20 06:20 INR, PTT INR 0.83 (0.83-1.09) 08/20/20 04:20 Problem List - Problems (1) Morbid obesity Assessment/Plan: -Low calorie diet Problems reviewed: Yes Code(s): E66.01 - MORBID (SEVERE) OBESITY DUE TO EXCESS CALORIES (2) CHF (congestive heart failure) Assessment/Plan: -Echo-03/26/20- LVEF 55-60%,trace tricuspid regurg-suboptimal study -CXR some congestive changes -Cardiology consult -Continue Lisinopril -Add Carvedilol 3.25 mg po BID -Furosemide 40 mg po daily upon discharge -I&O's -echo 03/26/20 normal EF, TDS Problems reviewed: Yes Code(s): I50.9 - HEART FAILURE, UNSPECIFIED Qualifiers: Heart failure type: unspecified Heart failure chronicity: unspecified Qualified Code(s): I50.9 - Heart failure, unspecified (3) Fall Assessment/Plan: -Heat CT negative -Physical therapy Problems reviewed: Yes Code(s): W19.XXXA - UNSPECIFIED FALL, INITIAL ENCOUNTER Qualifiers: Encounter type: initial encounter Qualified Code(s): W19.XXXA - Unspecified fall, initial encounter (4) Uncontrolled diabetes mellitus Assessment/Plan: -Check A1c -BGM AC HS -ISS -Levemir 20 QAM -Diabetic low sodium diet -Endocrine consult Problems reviewed: Yes Code(s): E11.65 - TYPE 2 DIABETES MELLITUS WITH HYPERGLYCEMIA Qualifiers: Diabetes mellitus type: type 2 Glycemic state: with hyperglycemia Qualified Code(s): E11.65 - Type 2 diabetes mellitus with hyperglycemia (5) Drug abuse Assessment/Plan: -Detox consult -Psychotherapy attempted by Dr Kamar Lu -Start seroquel 25 mg po bid due to outbursts -On gabapentin 900 mg po tid at home- continue Problems reviewed: Yes Code(s): F19.10 - OTHER PSYCHOACTIVE SUBSTANCE ABUSE, UNCOMPLICATED (6) Abnormal liver enzymes Assessment/Plan: -U/S liver -Trending down -monitor trend -2/2 to congestive hepatopathy Problems reviewed: Yes Code(s): R74.8 - ABNORMAL LEVELS OF OTHER SERUM ENZYMES (7) Lower extremity edema Assessment/Plan: -U/S venous doppler negative for DVT Problems reviewed: Yes Code(s): R60.0 - LOCALIZED EDEMA Assessment/Plan See problem list
[2020-03-27] MEDS: FUROSEMIDE 40 MG/4 ML INJECTABLE VIAL IVPUSH SCH (09:08)
[2020-03-27] MEDS: LISINOPRIL 10 MG TABLET (FP) PO SCH (09:09)
[2020-03-27] MEDS: HEPARIN NA (PORCINE) 5,000 UNITS/ML 1ML VIAL SQ SCH (09:09)
[2020-03-27] MEDS: CARVEDILOL 3.125 MG TABLET (FP) PO SCH (09:09)
--- NOTE | 2020-03-27 10:14 | PN ---
Progress Note, Physician Chief Complaint: less sob tele neg History of Present Illness: 54 F with HTN, DM, COPD drug use who was admitted 03/26/20 after a fall with sob and left leg pain. Noted with CHF on cxr and elevated bnp. TnI negative. ECG without changes. tox screen pos for cocaine and PCP. Duplex no DVT. echo 03/26/20 normal EF, TDS - Current Medication List Current Medications: Active Medications Acetaminophen (Tylenol -) 650 mg PO Q4H PRN PRN Reason: PAIN Last Admin: 03/27/20 06:08 Dose: 650 mg Documented by: Carvedilol (Coreg -) 3.125 mg PO BID [facility] Last Admin: 03/27/20 09:09 Dose: 3.125 mg Documented by: Furosemide (Lasix Injection -) 40 mg IVPUSH DAILY [facility] Last Admin: 03/27/20 09:08 Dose: 40 mg Documented by: Heparin Sodium (Porcine) (Heparin -) 5,000 unit SQ BID [facility] Last Admin: 03/27/20 09:09 Dose: 5,000 unit Documented by: Insulin Aspart (Novolog Vial Sliding Scale -) 1 vial SQ ACHS [facility]; Protocol Last Admin: 03/27/20 06:04 Dose: 2 units Documented by: Insulin Detemir (Levemir Vial) 20 units SQ AM [facility] Last Admin: 03/27/20 06:02 Dose: 20 units Documented by: Lisinopril (Prinivil) 10 mg PO DAILY [facility] Last Admin: 03/27/20 09:09 Dose: 10 mg Documented by: - Objective Vital Signs: Vital Signs Temperature 98.2 F 03/27/20 08:10 Pulse Rate 91 H 03/27/20 08:10 Respiratory Rate 20 03/27/20 08:12 Blood Pressure 127/80 03/27/20 08:10 O2 Sat by Pulse Oximetry (%) 95 03/27/20 08:12 Constitutional: Yes: No Distress, Calm Eyes: Yes: EOM Intact HENT: Yes: Normocephalic Neck: Yes: Trachea Midline Cardiovascular: Yes: Regular Rate and Rhythm Respiratory: Yes: CTA Bilaterally Gastrointestinal: Yes: Abdomen, Obese Extremities: Yes: WNL Edema: No Peripheral Pulses WNL: Yes Labs: CBC, BMP 03/26/20 03:20 03/27/20 06:20 INR, PTT INR 0.83 (0.83-1.09) 03/26/20 04:20 Assessment/Plan 54 F with HTN, DM, COPD drug use who was admitted 03/26/20 after a fall with sob and left leg pain. Noted with CHF on cxr and elevated bnp. TnI negative. ECG without acute changes. tox screen pos for cocaine and PCP. Duplex no DVT. IMP: -acute CHF, diastolic, in the setting of substance abuse. -not a candidate for ischemia workup. no pure beta edna due to cocaine use, can consider coreg or labetalol. -echo TDS normal EF. -can change lasix to PO. -dc telemetry. -will follow as needed.
--- NOTE | 2020-03-27 10:23 | CON.PSL ---
Psychology Consult History Provided By: Medical Record, Caregiver Limitations to Obtaining History: Unresponsive (Patient would not the phone for the consultation.) Current Medications: Active Medications Acetaminophen (Tylenol -) 650 mg PO Q4H PRN PRN Reason: PAIN Last Admin: 03/27/20 06:08 Dose: 650 mg Documented by: Carvedilol (Coreg -) 3.125 mg PO BID [facility] Last Admin: 03/27/20 09:09 Dose: 3.125 mg Documented by: Furosemide (Lasix Injection -) 40 mg IVPUSH DAILY [facility] Last Admin: 03/27/20 09:08 Dose: 40 mg Documented by: Heparin Sodium (Porcine) (Heparin -) 5,000 unit SQ BID [facility] Last Admin: 03/27/20 09:09 Dose: 5,000 unit Documented by: Insulin Aspart (Novolog Vial Sliding Scale -) 1 vial SQ ACHS [facility]; Protocol Last Admin: 03/27/20 06:04 Dose: 2 units Documented by: Insulin Detemir (Levemir Vial) 20 units SQ AM [facility] Last Admin: 03/27/20 06:02 Dose: 20 units Documented by: Lisinopril (Prinivil) 10 mg PO DAILY [facility] Last Admin: 03/27/20 09:09 Dose: 10 mg Documented by: Allergies: Allergies Allergy/AdvReac Type Severity Reaction Status Date / Time No Known Drug Allergies Allergy Verified 03/26/20 03:00 Hx Alcohol Use: Yes Hx Substance Use: Yes Substance Use Type: Alcohol, Cocaine (The patient appeared to be in denial according to one report that was reviewed.) Hx Substance Use Treatment: No (Patient denies Hx of alcohol and substance abuse per record.) Assessment/Plan The patient's nurse was spoken with and it was indicated that the patient is very difficult and uncooperative. An attempt to contact the patient by telephone was unproductive as she would not answer the phone (two attempts, in the morning and at about 1 pm as well). A review of the medical record was undertaken. According to the medical record the patient was drinking beer and used cocaine. She fell to the floor on her way to the bathroom and was taken by ambulance to [facility]. According to the medical chart, the patient appears to be in denial regarding a possible alcohol and drug abuse problem. She appears to experience severe anger outbursts as reported in the chart as well as by her nurse. Due to COVID and being in the high risk group, an in person assessment could not be performed. However, based on the chart review and conversation with her nurse, a psychiatric evaluation and substance use consultation are highly recommended. In addition, a nutritional consultation to address her obesity and diabetes is strongly advised.
--- NOTE | 2020-03-27 11:23 | DS ---
Physical Examination Vital Signs: Vital Signs Temperature 98.2 F 03/27/20 08:10 Pulse Rate 91 H 03/27/20 08:10 Respiratory Rate 20 03/27/20 08:12 Blood Pressure 127/80 03/27/20 08:10 O2 Sat by Pulse Oximetry (%) 95 03/27/20 08:12 Findings/Remarks: 54 F with HTN, DM, COPD BIBA after a fall. Patient went to the toilet, had an urinary urgency, peed and fell on the floor. Denies head hitting, LOC. Denies N/V/D. Patient admitted to drinking beer, and did cocaine. Patient was screaming and yelling at the staff. Patient janae endorse left leg pain. Patient tried to call her PCP for the past 3 weeks, but couldn't. Left leg swelling has been going on for the past 3 weeks. Pt is agitated, combative, throws things at Nursing staff. Uncooperative with psychotherapy (1) Morbid obesity Assessment/Plan: -Low calorie diet Problems reviewed: Yes Code(s): E66.01 - MORBID (SEVERE) OBESITY DUE TO EXCESS CALORIES (2) CHF (congestive heart failure) Assessment/Plan: -Echo-03/26/20- LVEF 55-60%,trace tricuspid regurg-suboptimal study -CXR some congestive changes -Cardiology consult -Continue Lisinopril -Add Carvedilol 3.25 mg po BID -Furosemide 40 mg po daily upon discharge -I&O's -echo 03/26/20 normal EF, TDS Problems reviewed: Yes Code(s): I50.9 - HEART FAILURE, UNSPECIFIED Qualifiers: Heart failure type: unspecified Heart failure chronicity: unspecified Qualified Code(s): I50.9 - Heart failure, unspecified (3) Fall Assessment/Plan: -Heat CT negative -Physical therapy Problems reviewed: Yes Code(s): W19.XXXA - UNSPECIFIED FALL, INITIAL ENCOUNTER Qualifiers: Encounter type: initial encounter Qualified Code(s): W19.XXXA - Unspecified fall, initial encounter (4) Uncontrolled diabetes mellitus Assessment/Plan: -A1c at 11.7 -BGM AC HS -ISS -Basalgar 36 U QHS at home -Diabetic low sodium diet -Endocrine consult Problems reviewed: Yes Code(s): E11.65 - TYPE 2 DIABETES MELLITUS WITH HYPERGLYCEMIA Qualifiers: Diabetes mellitus type: type 2 Glycemic state: with hyperglycemia Qualified Code(s): E11.65 - Type 2 diabetes mellitus with hyperglycemia (5) Drug abuse Assessment/Plan: -Detox consult -Psychotherapy attempted by Dr Kamar Lu -Start seroquel 25 mg po bid due to outbursts -On gabapentin 900 mg po tid at home- continue Problems reviewed: Yes Code(s): F19.10 - OTHER PSYCHOACTIVE SUBSTANCE ABUSE, UNCOMPLICATED (6) Abnormal liver enzymes Assessment/Plan: -U/S liver -Trending down -monitor trend -2/2 to congestive hepatopathy Problems reviewed: Yes Code(s): R74.8 - ABNORMAL LEVELS OF OTHER SERUM ENZYMES (7) Lower extremity edema Assessment/Plan: -U/S venous doppler negative for DVT Problems reviewed: Yes Code(s): R60.0 - LOCALIZED EDEMA Assessment/Plan See problem list Constitutional: Yes: Well Nourished, No Distress, Calm, Obese Cardiovascular: Yes: Regular Rate and Rhythm Respiratory: Yes: Regular, CTA Bilaterally Gastrointestinal: Yes: Normal Bowel Sounds, Soft, Abdomen, Obese Renal/: Yes: WNL Musculoskeletal: Yes: WNL Extremities: Yes: WNL Edema: No Peripheral Pulses WNL: Yes Neurological: Yes: Alert, Oriented Psychiatric: Yes: Alert, Oriented Labs: CBC, BMP 03/26/20 03:20 03/27/20 06:20 Discharge Summary Problems reviewed: Yes Reason For Visit: CHF,UNCON DIABETES MELLITUS,FALL Current Active Problems Abnormal liver enzymes (Acute) CHF (congestive heart failure) (Acute) Drug abuse (Acute) Fall (Acute) Lower extremity edema (Acute) Morbid obesity (Acute) Uncontrolled diabetes mellitus (Acute) Condition: Stable - Instructions Disposition: HOME - Home Medications Comprehensive Discharge Medication List: Ambulatory Orders Albuterol Sulfate Inhaler - [Ventolin Hfa *Inhaler*] 1 - 2 inh IH Q4H PRN 11/26/12 Ferrous Sulfate [Feosol] 325 mg PO BID 11/26/12 Sitagliptin Phosphate [Januvia] 100 mg PO DAILY 11/26/12 metFORMIN HCL [Glucophage] 500 mg PO BID 11/26/12 Ibuprofen [Motrin -] 800 mg PO TID 06/30/14 Ibuprofen 600 mg PO BID #20 tablet 10/17/18 Prescription Drug Monitoring Program (I-STOP) results: I-STOP reviewed and no issues identified
[2020-03-27] MEDS ORDERED: INSULIN (NOVOLOG) ASPART 100 UNITS/ML 10ML VIAL SQ ONE (11:39)
[2020-03-28] MEDS ORDERED: FUROSEMIDE 40 MG TABLET (FP) PO SCH (10:00)
== END 2020-03-27 13:41 | disposition home or self-care (01) ==
LOC: JER 02:47 → JERBED 06:56 → J4W 15:31
PROVIDERS: ADMIT Family Medicine; ATTEND Family Medicine
PROC: 3E013VG Introduction of Insulin into Subcutaneous Tissue, Percutaneous Approach (ICD-10-PCS; principal; 2020-03-26)
PROC: 3E023GC Introduction of Other Therapeutic Substance into Muscle, Percutaneous Approach (ICD-10-PCS; 2020-03-26)
PROC: 3E033VG Introduction of Insulin into Peripheral Vein, Percutaneous Approach (ICD-10-PCS; 2020-03-26)
DX: I11.0 Hypertensive heart disease with heart failure (principal); E11.65 Type 2 diabetes mellitus with hyperglycemia; W19.XXXA Unspecified fall, initial encounter; Y93.89 Activity, other specified; Y92.9 Unspecified place or not applicable; J44.9 Chronic obstructive pulmonary disease, unspecified; F17.210 Nicotine dependence, cigarettes, uncomplicated; E66.01 Morbid (severe) obesity due to excess calories; Z68.42 Body mass index [BMI] 45.0-49.9, adult; F19.10 Other psychoactive substance abuse, uncomplicated; R74.8 Abnormal levels of other serum enzymes; R60.0 Localized edema; Z29.9 Encounter for prophylactic measures, unspecified; Z79.4 Long term (current) use of insulin
CPT/HCPCS: 36415; 70450-TC; 71045-TC-FY; 76705-TC; 80048; 80053; 80307; 81003; 82550; 82553; 82962; 83036; 83880; 84484; 85027; 85610; 85730; 87086; 87186; 93005; 93010; 93306-TC; 93970-TC; 96365; 96372; 96375; 96376; 97116-GP; 97161-GP; 99285-25; G0378; J0131; J1644; U0003

== ENCOUNTER 2020-06-26 04:11 | Emergency (ER) | payer OTHER ==
[2020-06-26 04:55] VITALS: BP 142/89; PULSE 99; TEMP 98.6; BMI 37.8
[2020-06-26] MEDS ORDERED: KETOROLAC TROMETHAMINE 60 MG/2 ML VIAL IM ONE (05:10)
[2020-06-26] MEDS ORDERED: KETOROLAC TROMETHAMINE 60 MG/2 ML VIAL ONE (05:20)
== END 2020-06-26 08:41 | disposition home or self-care (01) ==
LOC: JER 04:11
PROC: 3E0233Z Introduction of Anti-inflammatory into Muscle, Percutaneous Approach (ICD-10-PCS; principal; 2020-06-26)
DX: M54.5 Low back pain (principal)
CPT/HCPCS: 99284-25

== ENCOUNTER 2020-09-02 10:28 | Inpatient (IN) | payer OTHER ==
[2020-09-02] MEDS ORDERED: SODIUM CHLORIDE 1,000 ML IV STA (11:48)
[2020-09-02] MEDS ORDERED: ACETAMINOPHEN 1000 MG/100 ML VIAL (NON FORMULARY) IVPB ONE (12:05)
[2020-09-02] MEDS ORDERED: ACETAMINOPHEN INJECTION 100 ML IVPB ONE (12:11)
[2020-09-02 12:22] LABS: BASO % 0.8 % (0-2.0); EOS % 0.6 % (0-4.5); HEMATOCRIT 44.5 % (32.4-45.2); HEMOGLOBIN 14.9 GM/dL (10.7-15.3); LYMPH % 29.9 % (8-40); MCH 30.7 pg (25.7-33.7); MCHC 33.6 g/dl (32.0-36.0); MEAN CELL VOLUME 91.4 fl (80-96); MEAN PLT VOLUME 10.4 fl (7.5-11.1); MONO % 9.6 % (3.8-10.2); NEUT % 59.1 % (42.8-82.8); PLATELET COUNT 253 K/MM3 (134-434); RBC 4.87 M/mm3 (3.60-5.2); RDW 13.4 % (11.6-15.6)
[2020-09-02 12:24] LABS: VENOUS O2 SATURATION 88.1 % (70-80); VENOUS PCO2 49.2 mmHg (38-52); VENOUS PH 7.319 (7.310-7.410)
[2020-09-02 12:52] LABS: CALCIUM 9.6 mg/dL (8.5-10.1)
[2020-09-02 12:53] LABS: ALBUMIN 3.2 g/dl (3.4-5.0); BLOOD UREA NITROGEN 9.4 mg/dL (7-18); MAGNESIUM 1.8 mg/dL (1.8-2.4)
[2020-09-02 12:56] LABS: CREATININE 1.1 mg/dL (0.55-1.3)
[2020-09-02 12:57] LABS: BILIRUBIN,TOTAL 0.4 mg/dL (0.2-1); TOT PROT 7.1 g/dl (6.4-8.2)
[2020-09-02] MEDS ORDERED: INSULIN REGULAR HUMAN 100 UNITS/ML *VIAL SQ ONE (13:08)
[2020-09-02 13:39] LABS: EPI CELLS 13 /uL (0-25.1); HYALINE CASTS 0 /uL (0-3.1); URINE APPEARANCE CLOUDY; URINE BACTERIA >9,000 /uL (0-1359); URINE BILIRUBIN NEGATIVE (NEGATIVE); URINE COLOR YELLOW; URINE GLUCOSE (UA) 3+ (NEGATIVE); URINE KETONE NEGATIVE (NEGATIVE); URINE LEUK ESTERASE NEGATIVE (NEGATIVE); URINE NITRITE NEGATIVE (NEGATIVE); URINE PROTEIN 2+ (NEGATIVE); URINE RBC 12 /uL (0-23.9); URINE UROBILINOGEN 0.2 mg/dL (0.2-1.0)
[2020-09-02] MEDS ORDERED: ALBUTEROL SO4 HFA INHALER IH PRN (17:01)
[2020-09-02] MEDS ORDERED: INSULIN (NOVOLOG) ASPART 100 UNITS/ML 10ML VIAL SQ ONE (20:59)
[2020-09-02] MEDS ORDERED: CARVEDILOL 3.125 MG TABLET (FP) ONE (21:15)
[2020-09-02] MEDS ORDERED: ATORVASTATIN CA 40 MG TABLET (FP) ONE (21:15)
[2020-09-02] MEDS ORDERED: HEPARIN NA (PORCINE) 5,000 UNITS/ML 1ML VIAL ONE (21:16)
[2020-09-02] MEDS ORDERED: GABAPENTIN 100 MG CAPSULE ONE (21:17)
[2020-09-02] MEDS ORDERED: INSULIN (LEVEMIR) 100 UNITS/ML UNITS SQ ONE (21:23)
[2020-09-02] MEDS: HEPARIN NA (PORCINE) 5,000 UNITS/ML 1ML VIAL SQ SCH (21:34)
[2020-09-02] MEDS: CARVEDILOL 3.125 MG TABLET (FP) PO SCH (21:34)
[2020-09-02] MEDS: GABAPENTIN 400 MG CAPSULE PO SCH (21:35)
[2020-09-02] MEDS: BUDESONIDE/FORMETEROL FUMARATE 160/4.5 mcg INHALER IH SCH (21:37)
[2020-09-02] MEDS ORDERED: INSULIN (LEVEMIR) 100 UNITS/ML UNITS SQ SCH (22:00)
[2020-09-02] MEDS ORDERED: INSULIN SLIDING SCALE (NOVOLOG) 1 VIAL SQ SCH ×2 (22:00)
[2020-09-02] MEDS ORDERED: ATORVASTATIN CA 40 MG TABLET (FP) PO SCH (22:00)
[2020-09-02] MEDS: ACETAMINOPHEN 325 MG TABLET (FP) PO SCH (22:44)
[2020-09-02] MEDS: INSULIN SLIDING SCALE (NOVOLOG) 1 VIAL SQ SCH (22:45)
[2020-09-03 02:53] VITALS: BMI 36.2
[2020-09-03] MEDS ORDERED: MAGNESIUM HYDROX 2400MG/30ML ORAL SUSPENSION 30 ML CUP PO ONE (03:15)
[2020-09-03] MEDS: DOCUSATE SODIUM 100 MG CAPSULE (FP) PO PRN ×2 (03:21→15:17)
[2020-09-03] MEDS: ACETAMINOPHEN 325 MG TABLET (FP) PO SCH ×3 (05:56→22:26)
[2020-09-03] MEDS: GABAPENTIN 400 MG CAPSULE PO SCH ×3 (05:58→22:25)
[2020-09-03] MEDS: metFORMIN HCL 500 MG TABLET (FP) PO SCH ×2 (05:59→16:43)
[2020-09-03] MEDS: INSULIN SLIDING SCALE (NOVOLOG) 1 VIAL SQ SCH ×4 (06:04→22:32)
[2020-09-03 08:04] LABS: POTASSIUM 3.8 mmol/L (3.5-5.1)
[2020-09-03 08:10] LABS: ALBUMIN 2.7 g/dl (3.4-5.0); BASO % 0.7 % (0-2.0); BLOOD UREA NITROGEN 13.5 mg/dL (7-18); EOS % 1.1 % (0-4.5); HEMATOCRIT 38.7 % (32.4-45.2); LYMPH % 33.2 % (8-40); MCH 30.5 pg (25.7-33.7); MCHC 33.5 g/dl (32.0-36.0); MEAN CELL VOLUME 91.2 fl (80-96); MEAN PLT VOLUME 10.7 fl (7.5-11.1); MONO % 8.3 % (3.8-10.2); NEUT % 56.7 % (42.8-82.8); PHOSPHOROUS 3.4 mg/dL (2.5-4.9); PLATELET COUNT 226 K/MM3 (134-434); RBC 4.24 M/mm3 (3.60-5.2); RDW 13.5 % (11.6-15.6); WHITE BLOOD COUNT 4.4 K/mm3 (4.0-10.0)
[2020-09-03 08:12] LABS: BILIRUBIN,TOTAL 0.3 mg/dL (0.2-1); CALCIUM 8.7 mg/dL (8.5-10.1); TOT PROT 6.1 g/dl (6.4-8.2)
[2020-09-03 08:13] LABS: CREATININE 1.1 mg/dL (0.55-1.3); MAGNESIUM 1.8 mg/dL (1.8-2.4)
[2020-09-03] MEDS: CARVEDILOL 3.125 MG TABLET (FP) PO SCH ×2 (09:41→22:26)
[2020-09-03] MEDS: HEPARIN NA (PORCINE) 5,000 UNITS/ML 1ML VIAL SQ SCH ×2 (09:42→22:29)
[2020-09-03] MEDS ORDERED: CLOPIDOGREL BISULFATE 75 MG TABLET (FP) PO SCH (10:00)
[2020-09-03] MEDS ORDERED: LISINOPRIL 20 MG TABLET PO SCH (10:00)
[2020-09-03] MEDS ORDERED: amLODIPine BESYLATE 5 MG TABLET (FP) PO SCH (10:00)
[2020-09-03] MEDS ORDERED: FUROSEMIDE 40 MG TABLET (FP) PO SCH (10:00)
[2020-09-03] MEDS ORDERED: ASPIRIN 81 MG CHEWABLE TABLETS PO SCH (10:00)
[2020-09-03] MEDS ORDERED: INSULIN (LEVEMIR) 100 UNITS/ML UNITS SQ SCH (10:19)
[2020-09-03] MEDS: BUDESONIDE/FORMETEROL FUMARATE 160/4.5 mcg INHALER IH SCH ×2 (11:08→22:38)
[2020-09-03] MEDS ORDERED: ALBUTEROL SO4 HFA INHALER IH PRN (19:35)
[2020-09-03] MEDS ORDERED: DOCUSATE SODIUM 100 MG CAPSULE (FP) PO PRN (19:35)
[2020-09-03] MEDS ORDERED: SENNOSIDES 8.6MG TABLET (FP) PO SCH (22:00)
[2020-09-03] MEDS: ATORVASTATIN CA 80 MG TABLET (FP) PO SCH (22:26)
[2020-09-03] MEDS: SENNOSIDES 8.6MG TABLET (FP) PO SCH (22:26)
[2020-09-03] MEDS: INSULIN (LEVEMIR) 100 UNITS/ML UNITS SQ SCH (22:31)
[2020-09-04] MEDS: GABAPENTIN 400 MG CAPSULE PO SCH ×3 (06:17→21:18)
[2020-09-04] MEDS: ACETAMINOPHEN 325 MG TABLET (FP) PO SCH ×3 (06:17→21:19)
[2020-09-04] MEDS: INSULIN SLIDING SCALE (NOVOLOG) 1 VIAL SQ SCH ×4 (06:59→21:19)
[2020-09-04] MEDS: metFORMIN HCL 500 MG TABLET (FP) PO SCH ×2 (07:06→17:43)
[2020-09-04] MEDS ORDERED: LIDOCAINE 1% P/F 10 MG/ML VIAL SQ ONE (09:25)
[2020-09-04] MEDS ORDERED: methylPREDNISolone ACET (DEPO) 80 MG/1 ML VIAL IAR ONE (09:25)
[2020-09-04] MEDS: ASPIRIN 81 MG CHEWABLE TABLETS PO SCH (09:57)
[2020-09-04] MEDS: LISINOPRIL 20 MG TABLET PO SCH (09:57)
[2020-09-04] MEDS: CARVEDILOL 3.125 MG TABLET (FP) PO SCH ×2 (09:57→21:18)
[2020-09-04] MEDS: HEPARIN NA (PORCINE) 5,000 UNITS/ML 1ML VIAL SQ SCH ×2 (09:57→21:20)
[2020-09-04] MEDS: FUROSEMIDE 40 MG TABLET (FP) PO SCH (09:57)
[2020-09-04] MEDS: CLOPIDOGREL BISULFATE 75 MG TABLET (FP) PO SCH (09:57)
[2020-09-04] MEDS: amLODIPine BESYLATE 2.5 MG TABLET (FP) PO SCH (09:57)
[2020-09-04] MEDS: BUDESONIDE/FORMETEROL FUMARATE 160/4.5 mcg INHALER IH SCH ×2 (09:58→21:46)
[2020-09-04] MEDS: SENNOSIDES 8.6MG TABLET (FP) PO SCH (21:18)
[2020-09-04] MEDS: ATORVASTATIN CA 80 MG TABLET (FP) PO SCH (21:18)
[2020-09-04] MEDS: INSULIN (LEVEMIR) 100 UNITS/ML UNITS SQ SCH (21:20)
[2020-09-05] MEDS: ACETAMINOPHEN 325 MG TABLET (FP) PO SCH ×3 (06:00→21:40)
[2020-09-05] MEDS: metFORMIN HCL 500 MG TABLET (FP) PO SCH ×2 (06:00→16:55)
[2020-09-05] MEDS: GABAPENTIN 400 MG CAPSULE PO SCH ×3 (06:00→21:34)
[2020-09-05] MEDS: INSULIN (LEVEMIR) 100 UNITS/ML UNITS SQ SCH ×2 (06:01→21:34)
[2020-09-05] MEDS: INSULIN SLIDING SCALE (NOVOLOG) 1 VIAL SQ SCH ×4 (06:08→21:40)
[2020-09-05] MEDS: CARVEDILOL 3.125 MG TABLET (FP) PO SCH ×2 (10:52→21:34)
[2020-09-05] MEDS: amLODIPine BESYLATE 2.5 MG TABLET (FP) PO SCH (10:52)
[2020-09-05] MEDS: ASPIRIN 81 MG CHEWABLE TABLETS PO SCH (10:52)
[2020-09-05] MEDS: CLOPIDOGREL BISULFATE 75 MG TABLET (FP) PO SCH (10:52)
[2020-09-05] MEDS: LISINOPRIL 20 MG TABLET PO SCH (10:52)
[2020-09-05] MEDS: FUROSEMIDE 40 MG TABLET (FP) PO SCH (10:52)
[2020-09-05] MEDS: HEPARIN NA (PORCINE) 5,000 UNITS/ML 1ML VIAL SQ SCH ×2 (10:53→21:33)
[2020-09-05] MEDS: BUDESONIDE/FORMETEROL FUMARATE 160/4.5 mcg INHALER IH SCH ×2 (10:59→21:40)
[2020-09-05] MEDS: CEFUROXIME AXETIL 500 MG TABLET PO SCH ×2 (11:53→21:34)
[2020-09-05] MEDS: ATORVASTATIN CA 80 MG TABLET (FP) PO SCH (21:34)
[2020-09-05] MEDS: SENNOSIDES 8.6MG TABLET (FP) PO SCH (21:34)
[2020-09-06] MEDS ORDERED: LIDOCAINE 5% TOPICAL PATCH TP ONE (01:21)
[2020-09-06] MEDS: metFORMIN HCL 500 MG TABLET (FP) PO SCH ×2 (06:56→18:27)
[2020-09-06] MEDS: GABAPENTIN 400 MG CAPSULE PO SCH ×3 (06:56→22:34)
[2020-09-06] MEDS: ACETAMINOPHEN 325 MG TABLET (FP) PO SCH ×3 (06:57→22:35)
[2020-09-06] MEDS: INSULIN SLIDING SCALE (NOVOLOG) 1 VIAL SQ SCH ×4 (06:57→22:41)
[2020-09-06] MEDS: INSULIN (LEVEMIR) 100 UNITS/ML UNITS SQ SCH ×2 (06:57→23:15)
[2020-09-06] MEDS ORDERED: PT OWN MED DRAWER 7, Y5N ONE (10:01)
[2020-09-06] MEDS: FUROSEMIDE 40 MG TABLET (FP) PO SCH (10:16)
[2020-09-06] MEDS: CLOPIDOGREL BISULFATE 75 MG TABLET (FP) PO SCH (10:16)
[2020-09-06] MEDS: amLODIPine BESYLATE 2.5 MG TABLET (FP) PO SCH (10:16)
[2020-09-06] MEDS: LISINOPRIL 20 MG TABLET PO SCH (10:16)
[2020-09-06] MEDS: BUDESONIDE/FORMETEROL FUMARATE 160/4.5 mcg INHALER IH SCH ×2 (10:16→22:36)
[2020-09-06] MEDS: CEFUROXIME AXETIL 500 MG TABLET PO SCH ×2 (10:16→22:34)
[2020-09-06] MEDS: CARVEDILOL 3.125 MG TABLET (FP) PO SCH ×2 (10:16→22:34)
[2020-09-06] MEDS: HEPARIN NA (PORCINE) 5,000 UNITS/ML 1ML VIAL SQ SCH ×2 (10:16→22:37)
[2020-09-06] MEDS: ASPIRIN 81 MG CHEWABLE TABLETS PO SCH (10:17)
[2020-09-06] MEDS: traMADol HCL 50 MG TABLET PO PRN (12:01)
[2020-09-06] MEDS ORDERED: LIDOCAINE PATCH REMOVAL MC ONE (13:00)
[2020-09-06] MEDS: SENNOSIDES 8.6MG TABLET (FP) PO SCH (22:34)
[2020-09-06] MEDS: ATORVASTATIN CA 80 MG TABLET (FP) PO SCH (22:34)
[2020-09-07] MEDS: INSULIN SLIDING SCALE (NOVOLOG) 1 VIAL SQ SCH ×4 (06:50→22:53)
[2020-09-07] MEDS: metFORMIN HCL 500 MG TABLET (FP) PO SCH ×2 (06:52→17:37)
[2020-09-07] MEDS: GABAPENTIN 400 MG CAPSULE PO SCH ×3 (06:52→22:51)
[2020-09-07] MEDS: INSULIN (LEVEMIR) 100 UNITS/ML UNITS SQ SCH ×2 (06:52→23:03)
[2020-09-07] MEDS: ACETAMINOPHEN 325 MG TABLET (FP) PO SCH ×3 (06:53→22:52)
[2020-09-07] MEDS: amLODIPine BESYLATE 2.5 MG TABLET (FP) PO SCH (09:25)
[2020-09-07] MEDS: HEPARIN NA (PORCINE) 5,000 UNITS/ML 1ML VIAL SQ SCH ×2 (09:25→22:56)
[2020-09-07] MEDS: FUROSEMIDE 40 MG TABLET (FP) PO SCH (09:25)
[2020-09-07] MEDS: LISINOPRIL 20 MG TABLET PO SCH (09:25)
[2020-09-07] MEDS: CEFUROXIME AXETIL 500 MG TABLET PO SCH ×2 (09:25→22:52)
[2020-09-07] MEDS: ASPIRIN 81 MG CHEWABLE TABLETS PO SCH (09:25)
[2020-09-07] MEDS: CARVEDILOL 3.125 MG TABLET (FP) PO SCH ×2 (09:25→22:52)
[2020-09-07] MEDS: CLOPIDOGREL BISULFATE 75 MG TABLET (FP) PO SCH (09:25)
[2020-09-07] MEDS: BUDESONIDE/FORMETEROL FUMARATE 160/4.5 mcg INHALER IH SCH ×2 (09:26→23:03)
[2020-09-07] MEDS: ATORVASTATIN CA 80 MG TABLET (FP) PO SCH (22:52)
[2020-09-07] MEDS: SENNOSIDES 8.6MG TABLET (FP) PO SCH (22:52)
[2020-09-08] MEDS: INSULIN (LEVEMIR) 100 UNITS/ML UNITS SQ SCH (06:44)
[2020-09-08] MEDS: GABAPENTIN 400 MG CAPSULE PO SCH (06:44)
[2020-09-08] MEDS: metFORMIN HCL 500 MG TABLET (FP) PO SCH (06:44)
[2020-09-08] MEDS: ACETAMINOPHEN 325 MG TABLET (FP) PO SCH (06:44)
[2020-09-08] MEDS: INSULIN SLIDING SCALE (NOVOLOG) 1 VIAL SQ SCH ×2 (06:45→11:48)
[2020-09-08] MEDS: traMADol HCL 50 MG TABLET PO PRN (08:48)
[2020-09-08] MEDS: amLODIPine BESYLATE 2.5 MG TABLET (FP) PO SCH (09:24)
[2020-09-08] MEDS: LISINOPRIL 20 MG TABLET PO SCH (09:24)
[2020-09-08] MEDS: ASPIRIN 81 MG CHEWABLE TABLETS PO SCH (09:24)
[2020-09-08] MEDS: FUROSEMIDE 40 MG TABLET (FP) PO SCH (09:24)
[2020-09-08] MEDS: CARVEDILOL 3.125 MG TABLET (FP) PO SCH (09:24)
[2020-09-08] MEDS: CEFUROXIME AXETIL 500 MG TABLET PO SCH (09:24)
[2020-09-08] MEDS: HEPARIN NA (PORCINE) 5,000 UNITS/ML 1ML VIAL SQ SCH (09:24)
[2020-09-08] MEDS: CLOPIDOGREL BISULFATE 75 MG TABLET (FP) PO SCH (09:24)
[2020-09-08] MEDS: BUDESONIDE/FORMETEROL FUMARATE 160/4.5 mcg INHALER IH SCH (09:25)
[2020-09-08 12:36] VITALS: BP 131/76; PULSE 105; TEMP 97.8
== END 2020-09-08 14:07 | disposition home or self-care (01) | DRG 420 ==
LOC: JER 10:28 → JERBED 17:46 → J7W 09-03 02:08 → J4W 09-03 19:10 → J6S 09-05 14:22
PROVIDERS: ADMIT Family Medicine; ATTEND Family Medicine
PROC: 3E0U33Z Introduction of Anti-inflammatory into Joints, Percutaneous Approach (ICD-10-PCS; principal; 2020-09-04)
PROC: 3E0U3BZ Introduction of Anesthetic Agent into Joints, Percutaneous Approach (ICD-10-PCS; 2020-09-04)
DX: E11.65 Type 2 diabetes mellitus with hyperglycemia (principal); R26.2 Difficulty in walking, not elsewhere classified; M70.72 Other bursitis of hip, left hip; B96.1 Klebsiella pneumoniae [K. pneumoniae] as the cause of diseases classified elsewhere; G45.9 Transient cerebral ischemic attack, unspecified; R00.0 Tachycardia, unspecified; N39.0 Urinary tract infection, site not specified; I50.32 Chronic diastolic (congestive) heart failure; E11.40 Type 2 diabetes mellitus with diabetic neuropathy, unspecified; I69.354 Hemiplegia and hemiparesis following cerebral infarction affecting left non-dominant side; M25.552 Pain in left hip; K21.9 Gastro-esophageal reflux disease without esophagitis; F17.210 Nicotine dependence, cigarettes, uncomplicated; E66.9 Obesity, unspecified; Z68.36 Body mass index [BMI] 36.0-36.9, adult; Z91.14 Patient's other noncompliance with medication regimen
CPT/HCPCS: 36415; 70450-TC; 70551-TC; 71045-TC-FY; 72100-TC-FY; 73523-TC-FY; 80053; 81003; 82010; 82803; 82962; 83735; 84100; 84443; 84484; 85025; 87086; 87186; 93005; 93010; 93880-TC; 97116-GP; 97162-GP; 99285-25; C9803; J0131; J1644; U0003

== ENCOUNTER 2020-11-28 14:24 | Emergency (ER) | payer OTHER ==
[2020-11-28 15:15] VITALS: BP 122/85; PULSE 120; TEMP 98; BMI 30.2
[2020-11-28] MEDS ORDERED: SODIUM CHLORIDE 1,000 ML IV STA (15:52)
[2020-11-28 17:07] LABS: BASO % 0.8 % (0-2.0); EOS % 0.3 % (0-4.5); HEMATOCRIT 44.1 % (32.4-45.2); HEMOGLOBIN 14.6 GM/dL (10.7-15.3); LYMPH % 32.1 % (8-40); MEAN CELL VOLUME 90.9 fl (80-96); MEAN PLT VOLUME 10.1 fl (7.5-11.1); MONO % 9.5 % (3.8-10.2); NEUT % 57.3 % (42.8-82.8); PLATELET COUNT 258 K/MM3 (134-434); RBC 4.85 M/mm3 (3.60-5.2); RDW 12.7 % (11.6-15.6); WHITE BLOOD COUNT 4.7 K/mm3 (4.0-10.0)
[2020-11-28 17:14] LABS: INR 0.94 (0.83-1.09); PROTHROMBIN TIME (PATIENT) 11.6 SEC (9.7-13.0)
[2020-11-28 17:17] LABS: EPI CELLS >36 /uL (0-25.1); HYALINE CASTS 2 /uL (0-3.1); PH,URINE 5.5 (5.0-8.0); URINE APPEARANCE CLOUDY; URINE BACTERIA 3535 /uL (0-1359); URINE BILIRUBIN NEGATIVE (NEGATIVE); URINE COLOR YELLOW; URINE GLUCOSE (UA) 3+ (NEGATIVE); URINE KETONE TRACE (NEGATIVE); URINE LEUK ESTERASE NEGATIVE (NEGATIVE); URINE NITRITE NEGATIVE (NEGATIVE); URINE PROTEIN 3+ (NEGATIVE); URINE RBC 12 /uL (0-23.9)
[2020-11-28 17:28] LABS: CALCIUM 9.7 mg/dL (8.5-10.1)
[2020-11-28 17:29] LABS: ALBUMIN 3.4 g/dl (3.4-5.0); BLOOD UREA NITROGEN 22.5 mg/dL (7-18)
[2020-11-28 17:32] LABS: CREATININE 1.2 mg/dL (0.55-1.3)
[2020-11-28 17:33] LABS: BILIRUBIN,TOTAL 0.4 mg/dL (0.2-1)
[2020-11-28 17:34] LABS: TOT PROT 7.3 g/dl (6.4-8.2)
[2020-11-28 18:34] LABS: URINE WBC 86.3 /uL (0-25.8)
[2020-11-28] MEDS ORDERED: morphine CARPU-JECT 4 MG/1 ML DISP.SYRIN IVPUSH ONE (19:32)
[2020-11-28] MEDS ORDERED: POLYETHYLENE GLYCOL 3350 119 GM BTL PO ONE (19:39)
[2020-11-28] MEDS ORDERED: LACTULOSE 20 GM/30 ML UDC (FOR ORAL USE ONLY) PO ONE (19:39)
[2020-11-28] MEDS ORDERED: CEFTRIAXONE 1 GM in DEXTROSE 5%-WATER - 100 ML IVPB ONE (19:40)
[2020-11-28] MEDS ORDERED: LACTULOSE 20 GM/30 ML UDC (FOR ORAL USE ONLY) ONE (20:00)
[2020-11-28] MEDS ORDERED: morphine SULFATE 4 MG/ML VIAL ONE (20:01)
[2020-11-28] MEDS ORDERED: CEFTRIAXONE 1 GM/50 ML BAG ONE (20:01)
[2020-11-28] MEDS ORDERED: SODIUM PHOSPHATE/NA BIPHOS 133 ML ENEMA PR ONE (21:12)
== END 2020-11-28 22:52 | disposition home or self-care (01) ==
LOC: JER 14:24
PROC: 3E03329 Introduction of Other Anti-infective into Peripheral Vein, Percutaneous Approach (ICD-10-PCS; principal; 2020-11-28)
PROC: 3E033NZ Introduction of Analgesics, Hypnotics, Sedatives into Peripheral Vein, Percutaneous Approach (ICD-10-PCS; 2020-11-28)
PROC: 3E0337Z Introduction of Electrolytic and Water Balance Substance into Peripheral Vein, Percutaneous Approach (ICD-10-PCS; 2020-11-28)
DX: E11.42 Type 2 diabetes mellitus with diabetic polyneuropathy (principal); K59.00 Constipation, unspecified
CPT/HCPCS: 36415; 74177-TC; 80053; 81003; 82550; 84484; 85025; 85610; 87086; 87186; 93005; 93010; 99285-25; Q9967